=== PATIENT | male | born 1950 | race Caucasian/White ===

== ENCOUNTER 2019-09-13 15:49 | Outpatient (CLI) | payer MEDICARE, SELFPAY ==
[2019-09-13 16:38] LABS: Blood Urea Nitrogen 18 mg/dL (9-20); Calcium 9.2 mg/dL (8.4-10.2); Carbon Dioxide 26 mmol/L (22-30); Chloride 101 mmol/L (98-107); Estimated Glomerular Filt Rate > 60; Glucose 113 mg/dL (75-110); Sodium 139 mmol/L (137-145)
== END 2019-09-13 15:50 | disposition home or self-care (01) ==
LOC: ANHSURGERY 15:54
PROVIDERS: Anesthesiology; PCP Family Medicine; Visit Provider Surgery
DX: K43.2 Incisional hernia without obstruction or gangrene (principal); I10 Essential (primary) hypertension
CPT/HCPCS: 36415; 80048; 86850; 86900; 86901

== ENCOUNTER 2019-09-18 01:39 | Day surgery (SDC) | payer MEDICARE, SELFPAY ==
[2019-09-12 13:40] VITALS: BMI 30.9
--- NOTE | 2019-09-17 18:12 | WPDANESEPP ---
Anes - Eval Pre Procedure Procedure: Operation Date: 09/18/19 07:30 Proposed Procedures p Laparoscopic Incisional Hernia Repair With Mesh, Kit Assisted - Petey Mensah DO Date/Time: 09/17/19 18:12 Pre Op Diagnosis: Incisional Hernia Patient Data Age: 68 Gender: M Height: 1.78 m Weight: 97.65 kg Allergies Allergy/AdvReac Type Severity Reaction Status Date / Time Sulfa (Sulfonamide Allergy Unknown Rash Verified 09/16/19 14:41 Antibiotics) Home Medications Medication Instructions Recorded Confirmed Type lorazepam 0.5 mg tablet 0.5 mg PO BID PRN #60 tablet 08/01/19 09/16/19 Rx aspirin 81 mg tablet,delayed 81 mg PO DAILY 08/12/19 09/16/19 History release atorvastatin 40 mg tablet 40 mg PO .QHS #90 tablet 08/12/19 09/16/19 Rx cholecalciferol (vitamin D3) 25 1,000 unit PO Q5D cap 08/12/19 09/16/19 History mcg (1,000 unit) capsule metoprolol succinate 50 mg 50 mg PO DAILY #90 tablet 08/19/19 09/16/19 Rx tablet,extended release 24 hr sertraline 50 mg tablet 50 mg PO DAILY #90 tablet 08/19/19 09/16/19 Rx antiarthritic combination no.2 900 900 mg PO DAILY 08/23/19 09/16/19 History mg tablet lisinopril-hydrochlorothiazide 0.5 tablet PO PRN PRN 09/12/19 09/16/19 History multivitamin,xg-vtoh-ostuncfj 1 tablet PO DAILY 09/12/19 09/16/19 History [Complete Multivitamin] Patient hx anesthesia problems: none Family hx anesthesia problems: none PMFSH Past Medical History Medical History (Updated 09/17/19 @ 08:51 by Ruben George MD) Anxiety CAD (coronary artery disease) Dyslipidemia Essential (primary) hypertension History of heart disease History of panic attacks History of prostate cancer Kidney stone Osteoarthritis Prediabetes Vitamin D deficiency Surgical History Surgical History (Updated 09/16/19 @ 15:51 by Ruben George MD) H/O hernia repair H/O knee surgery H/O prostatectomy 03/2019 Hx laparoscopic cholecystectomy Hx of heart artery stent Social History Social History (Reviewed 09/16/19 @ 14:41 by Padmini Knapp Smoking status: Former smoker Second hand tobacco smoke exposure: No Smoking end date: 08/07/85 Alcohol intake: current Exam Day of Procedure 09/17/19 18:12
[2019-09-18] VITALS (10 sets, daily range): BP systolic 107–138; BP diastolic 53–82; PULSE 63–87; RESP 14–20; TEMP 36.9–37.3; O2SAT 91–97
[2019-09-18] MEDS: LACTATED RINGERS 1,000 ML 30 ML IV CONT ×2 (06:45→10:51)
--- NOTE | 2019-09-18 06:57 | P.PNAN_ITS ---
Anes - Eval Final PreProcedure Day of Procedure 09/18/19 06:57 Patient weight: obese Heart: regular rate and rhythm Lungs: decreased breath sounds Airway: Mallampati scale class 1 Neurological: alert and oriented Last oral intake: >/= 8 hours ASA classification: III Emergent: no Anesthetic plan: proceed Anesthesia type and monitoring: general ETT and standard monitoring Informed Consent: The patient's anesthetic plan and its attendant risks and b enefits were discussed with the patient/family/POA. Questions were solicited and answers provided to the satisfaction of the patient/family/POA.
[2019-09-18] MEDS: IBUPROFEN IV 800 MG/200 ML 800 MG/200 ML BAG 400 MG IVPB (07:00)
--- NOTE | 2019-09-18 07:14 | WPDHPUPDATE1 ---
History and Physical Update Update Date/Time: 09/18/19 07:14 History and Physical has been reviewed, including an updated exam of the patient. There are NO changes in the patient's condition. Risks, benefits, and alternatives have been discussed and questions answered. Patient agrees to proceed with procedure.
[2019-09-18] MEDS: ceFAZolin 2 GM/D5W 50 ML 2 GM/50 ML BAG IVPB (07:30)
--- NOTE | 2019-09-18 09:32 | SUR.OPER ---
SYMBOTEX INCISIONAL HERNIA MESH LOT PTF [id number], EXP 2024-01-05
--- NOTE | 2019-09-18 09:57 | PM.PROC ---
Procedure Note - Detailed Date of procedure: 09/18/19 Pre-op diagnosis: Incisional Hernia Post-op diagnosis: same Procedure performed: Laparoscopic incisional hernia repair with Symbotex mesh, da Marco A assisted Description of procedure: Procedure as well as risks, benefits, and alternatives were discussed with the patient. Written consent was obtained and placed in chart prior to procedure. Patient was brought back to surgical suite. He was placed supine on operating table. Time-out was done to confirm patient and procedure. He was then intubated by the anesthesia department. A bump was placed under his left hip, and the bed was flexed slightly to extend the space between his costal margin and iliac crest. His abdomen was prepped and draped in sterile fashion using chlorhexidine prep. A 5 millimeter incision was made in the left upper quadrant, and a 5 millimeter Optiview trocar was advanced through the abdominal layers under direct visualization. Once inside the abdominal cavity, carbon dioxide insufflation was used to create a pneumoperitoneum. The abdomen was inspected. An 8 millimeter incision was made in the left lower quadrant, and an 8 millimeter robotic trocar was placed under direct visualization. Another 8 millimeter incision was made in the left lateral abdomen, and an 8 millimeter robotic trocar was placed under direct visualization. Exparel was infiltrated along the lateral abdominal good to perform a transversus abdominis plane block bilaterally. The 5 millimeter port was removed, the incision was extended to 12 millimeters, and a 12 millimeter air seal port was placed under direct visualization. A Gui-Torres cone was also used to place an 0-Vicryl simple interrupted suture at this trocar site. The robotic arms were brought up to the patient's bedside and secured to the ports. The camera and instruments were inserted, and I then moved over to the robotic console and took control of the camera and instruments. After careful thorough inspection of the abdominal cavity, I began my dissection at the hernia. There was some omentum adherent to the hernia and this was carefully taken down using hook electrocautery. I then took down the hernia sac and the surrounding preperitoneal fat using hook electrocautery. The falciform ligament was also taken down for about 10 cm cephalad using hook electrocautery. This portion of the falciform ligament and the hernia sac were excised completely with electrocautery and removed through the 12 mm port. I then measured the hernia size. The hernia measured 5 cm x 4 cm. The fascia was closed using an 0-Stratafix running suture in a vertical fashion. A 15 cm x 20 cm Symbotex mesh was then placed within the abdominal cavity. This was oriented vertically with the mesh centered on the hernia defect. The mesh was then secured around the perimeter using and 2-0 V lock running absorbable suture. The repair was inspected, and one final inspection was made around the abdominal cavity. The robotic instruments were then removed, and the robotic arms were disengaged from the trocars. The ports were then removed under direct visualization, the camera was removed, and the pneumoperitoneum was released. The 0 Vicryl transfascial suture was tied down. The skin of the incisions was then approximated using 4-0 Monocryl subcuticular suture. Exofin glue was then applied on top. The patient was then awakened from anesthesia, extubated, and transferred to recovery. Implants: 15cm x 20cm Symbotex Mesh Anesthesia: GETA and local (Experienced) Surgeon: Petey Mensah DO Estimated blood loss (mL): 10 Drains: No Complications: No immediate complications Condition: stable Disposition: same day Findings: This is a 68-year-old man who presented with a painful bulge just above his umbilicus. He has noticed this over the past year. He underwent robotic prostatectomy back in 2018, and noticed the bulge at the scar from his
== END 2019-09-18 12:36 | disposition home or self-care (01) ==
PROVIDERS: PCP Family Medicine; Referring Provider Urology; Visit Provider Surgery
PROC: (CPT 49654; principal; 2019-09-18 07:30)
DX: K43.2 Incisional hernia without obstruction or gangrene (principal); I10 Essential (primary) hypertension; I25.10 Atherosclerotic heart disease of native coronary artery without angina pectoris; E78.5 Hyperlipidemia, unspecified; R73.03 Prediabetes; E55.9 Vitamin D deficiency, unspecified; M19.90 Unspecified osteoarthritis, unspecified site; Z79.82 Long term (current) use of aspirin; Z95.5 Presence of coronary angioplasty implant and graft; Z87.891 Personal history of nicotine dependence; Z85.46 Personal history of malignant neoplasm of prostate
CPT/HCPCS: 49654; S2900; A9270; C1781; C9290; J0461; J0690; J1100; J1170; J1741; J2250; J2405; J2704; J2710; J3010; J7030; J7120

== ENCOUNTER 2021-05-24 23:52 | Emergency (ER) | payer MEDICARE, SELFPAY ==
--- NOTE | ~2021-05-24 | XR_ITS ---
EXAMINATION: XR chest 1V DATE: 05/25/2021 00:45 INDICATION: Weakness. TECHNIQUE: A single frontal view of the chest was obtained. COMPARISON: Chest 2 views 03/22/2019, CT abdomen and pelvis 03/22/2019 FINDINGS: There are mild airspace opacities in the lower lung zones. No pleural effusion or pneumotho rax. The heart size is normal. There are prominent paracardial fat pads. Surgical clips in the right upper quadrant are likely from cholecystectomy. There is an old healed fracture of left clavicle. IMPRESSION: 1. Mild airspace opacities in the lower lung zones, likely atelectasis. Reviewed, dictated and finalized at location A.
--- NOTE | ~2021-05-24 | CT_ITS ---
EXAMINATION: CT brain wo con DATE: 05/25/2021 00:38 INDICATION: Dizziness. Frontal headache. TECHNIQUE: Computed tomography (CT) of the head was performed without intravenous contrast. The mA wa s adjusted according to patient size. Iterative reconstruction technique was employed. The dose-lengt h product was 605.33 mGy-cm. COMPARISON: Head CT 05/11/2019 FINDINGS: There is no intracranial hemorrhage, acute infarction, or abnormal intracranial mass lesion . The ventricles are normal in size. There is mild mucosal thickening in the paranasal sinuses. The m astoid air cells are normal. The orbits are normal. IMPRESSION: 1. Normal brain. Reviewed, dictated and finalized at location A. IMPRESSION: 1. Normal brain.
[2021-05-24 23:53] VITALS: BP 148/91; PULSE 97; RESP 20; TEMP 36.6; O2SAT 96
--- NOTE | 2021-05-25 00:05 | ED.WEAKNESS ---
HPI - Weakness General Chief complaint: Weakness Stated complaint: WEAK DIZZY Time Seen by Provider: 05/24/21 23:55 Source: RN notes reviewed History of Present Illness HPI Narrative: Patient presents emergency department from home for dizziness. Patient states he was sitting in his chair watching TV when he suddenly became dizzy states he felt like his head was pounding and felt like his heart was racing. He states that at that time he called EMS and was transferred for further evaluation he states that this time all the symptoms are improved except he still has a mild headache he denies any fevers or chills shortness of breath chest pain abdominal pain nausea vomiting or any other symptoms Related Data Home Medications Medication Instructions Recorded Confirmed aspirin 81 mg tablet,delayed 81 mg PO DAILY 08/12/19 01/28/21 release cholecalciferol (vitamin D3) 25 1,000 unit PO Q5D cap 08/12/19 01/28/21 mcg (1,000 unit) capsule antiarthritic combination no.2 900 900 mg PO DAILY 08/23/19 01/28/21 mg tablet Complete Multivitamin 1 tablet PO DAILY 09/12/19 01/28/21 lisinopril-hydrochlorothiazide 0.5 tablet PO PRN PRN 09/12/19 01/28/21 Allergies Allergy/AdvReac Type Severity Reaction Status Date / Time Sulfa (Sulfonamide Allergy Unknown Rash Verified 11/14/19 13:33 Antibiotics) Review of Systems Review of Systems: Gen.: Denies fevers or chills Eyes: Denies eye pain or visual change ENT: Denies congestion Respiratory: Denies shortness of breath or cough CV: Denies chest pain reports feelings of palpitations GI: Denies abdominal pain nausea, emesis or diarrhea Musculoskeletal: Denies back pain or muscle pain Neuro: Denies numbness, tingling, weakness or focal weakness reports headache and dizziness Skin: Denies rash Except as documented, all other systems reviewed and negative [facility] Past Medical History Medical History Anxiety Arthritis of carpometacarpal (CMC) joint of right thumb CAD (coronary artery disease) Dyslipidemia Essential (primary) hypertension History of heart disease History of panic attacks History of prostate cancer Kidney stone Osteoarthritis Prediabetes Vitamin D deficiency Surgical History Surgical History H/O hernia repair H/O knee surgery left knee Uni 2017 H/O prostatectomy 03/2019 History of incisional hernia repair with symbotex mesh, da Marco A assisted 09/18/19 Hx laparoscopic cholecystectomy Hx of heart artery stent Family History Family History Mother Family history of cardiovascular disease Carcinoma of colon Father Cerebrovascular accident Sibling Heart disease COPD (chronic obstructive pulmonary disease) Social History Social History Smoking status: Former smoker Second hand tobacco smoke exposure: No Smoking end date: 08/07/85 Alcohol intake: current Exam Narrative: APPEARANCE: No acute distress, nontoxic, resting in bed HEENT: Normocephalic, atraumatic, OMM, EYES: PERRL, EOMI NECK: Supple, nontender, full range of motion without pain, no meningismus RESPIRATORY: No respiratory distress, clear to auscultation bilaterally with no rhonchi wheezing or rales CARDIOVASCULAR: RRR s murmur ABDOMINAL: Soft, nontender, nondistended MUSCULOSKELETAL: Moves all extremities. No clubbing, cyanosis or edema. NEURO: A and O ?3, following commands, speech normal, cranial nerves II through XII grossly intact,muscle strength 5 out of 5 bilateral upper and lower extremities SKIN:: Warm, dry. Normal Color PSYCHIATRIC: Normal affect/mood Course Course Emergency Course: Patient is remained asymptomatic throughout his stay in the ED. He has remained on a quality assurance monitor with no signs of arrhythmia. Patient states this is the fourth time an episo
[2021-05-25 00:41] LABS: Basophils Absolute Auto 0.1 K/mm3 (0.0-0.1); Basophils Percent Auto 0.7 % (0.2-1.2); Eosinophils Absolute Auto 0.2 K/mm3 (0-0.3); Eosinophils Percent Auto 2.1 % (0-4.4); Hematocrit 40.9 % (42.0-52.0); Hemoglobin 14.5 g/dL (14.0-18.0); Immature Granulocyte Absolute 0.04 K/mm3 (0.00-0.031); Immature Granulocyte Percent A 0.4 % (0-0.5); Lymphocytes Absolute Auto 2.26 K/mm3 (0.9-3.2); Lymphocytes Percent Auto 22.9 % (18.3-44.2); Mean Corpuscular HGB Conc 35.5 g/dl (32-36); Mean Corpuscular Hemoglobin 31.5 pg (26-34); Mean Corpuscular Volume 88.7 fl (80-100); Mean Platelet Volume 8.6 fl (7.4-10.4); Monocytes Absolute Auto 0.9 K/mm3 (0.1-0.6); Monocytes Percent Auto 8.7 % (2.6-8.5); Neutrophils Absolute Auto 6.4 K/mm3 (1.3-6.7); Neutrophils Percent Auto 65.2 % (45.5-73.1); Platelet Count Result 245 k/mm3 (150-375); Red Blood Count 4.61 M/mm3 (4.6-6.20); Red Cell Distribution Width 13.6 % (11.5-14.5); White Blood Count 9.9 K/mm3 (4.5-10.0)
[2021-05-25 00:49] LABS: Alanine Aminotransferase 34 U/L (4-50); Alkaline Phosphatase 63 U/L (38-126); Anion Gap 9 mmol/L (8-16); Aspartate Amino Transferase 32 U/L (17-59); Bilirubin,Total 0.5 mg/dL (0.2-1.3); Blood Urea Nitrogen 27 mg/dL (9-20); Calcium 9.4 mg/dL (8.4-10.2); Carbon Dioxide 27 mmol/L (22-30); Chloride 100 mmol/L (98-107); Estimated CRCL calculation 72 ml/min; Estimated Glomerular Filt Rate > 60; Glucose 136 mg/dL (65-110); Potassium 3.6 mmol/L (3.4-5.0); Sodium 136 mmol/L (137-145)
--- NOTE | 2021-05-25 00:54 | ECG_ITS ---
Measurements Intervals [place] Rate: 88 P: 46 AR: 201 QRS: -4 QRSD: 109 T: 47 QT: 378 QTc: 459 Interpretive Statements SINUS RHYTHM DELAYED PRECORDIAL R/S TRANSITION MINIMAL Q WAVES- HIGH LATERAL LEADS BASELINE ARTIFACT- II, III, AVR, AVF, V1, V3-V6 BORDERLINE ECG Electronically Signed On 05-25-2021 7:55:56 CDT by Ramon Fernandez D.O.
[2021-05-25 01:01] LABS: Troponin I < 0.012 ng/mL (0.000-0.034)
[2021-05-25 01:07] LABS: Add Urine Microscopic? NO; Appearance Urine Clear (Clear); Bilirubin Urine Negative (Negative); Blood Urine Negative (Negative); Color Urine Straw (Yellow); Glucose Urine UA Negative (Negative); Ketones Urine Negative (Negative); Leukocyte Esterase Ur Negative LEU/UL (Negative); Nitrate Urine Negative (Negative); Protein Urine Negative (Negative); Specific Grav Ur 1.012 (1.001-1.035); Urobilinogen Urine Negative mg/dL (<2.0)
[2021-05-25 01:28] VITALS: BP 135/77; PULSE 90; RESP 17; O2SAT 97
[2021-05-25 01:34] LABS: Prothrombin Time 13.1 Seconds (11.1-14.7)
[2021-05-25 01:35] LABS: Partial Thromboplastin Time 25.6 SECONDS (22.3-36.8)
[2021-05-25 02:39] VITALS: BP 134/95; PULSE 99; RESP 19; O2SAT 95
[2021-05-25 03:50] LABS: Troponin I < 0.012 ng/mL (0.000-0.034)
[2021-05-25 04:37] VITALS: BP 135/74; PULSE 87; RESP 20; O2SAT 97
== END 2021-05-25 04:49 | disposition home or self-care (01) ==
PROVIDERS: Emergency Provider Emergency Medicine; PCP Family Medicine
DX: R42 Dizziness and giddiness (principal); I25.10 Atherosclerotic heart disease of native coronary artery without angina pectoris; E78.5 Hyperlipidemia, unspecified; I10 Essential (primary) hypertension; M18.9 Osteoarthritis of first carpometacarpal joint, unspecified; R73.03 Prediabetes; E55.9 Vitamin D deficiency, unspecified; F41.9 Anxiety disorder, unspecified; Z85.46 Personal history of malignant neoplasm of prostate; Z79.82 Long term (current) use of aspirin; Z87.442 Personal history of urinary calculi; Z90.79 Acquired absence of other genital organ(s); Z95.5 Presence of coronary angioplasty implant and graft; Z87.891 Personal history of nicotine dependence; R94.31 Abnormal electrocardiogram [ECG] [EKG]; R91.8 Other nonspecific abnormal finding of lung field
CPT/HCPCS: 36415; 70450; 71045; 80053; 81003; 84484; 85025; 85610; 85730; 93005; 96365; 99284; J0131

== ENCOUNTER 2021-05-26 12:54 | Emergency (ER) | payer MEDICARE, SELFPAY ==
[2021-05-26] VITALS (46 sets, daily range): BP systolic 117–162; BP diastolic 78–94; PULSE 70–108; RESP 11–24; TEMP 36.6; O2SAT 94–99
--- NOTE | ~2021-05-26 | XR_ITS ---
EXAMINATION: XR chest 2V 05/26/2021 12:56 INDICATION: Shortness of breath and tachycardia. History of coronary artery stent PROCEDURE: PA and lateral views of the chest COMPARISON: Comparison to multiple prior studies sequentially, with oldest reviewed study dated 08/2018. FINDINGS: The lungs are clear. The cardiomediastinal silhouette is within normal limits. There are no pleural effusions. There is no pneumothorax suspected. IMPRESSION: 1: NO ACUTE CARDIOPULMONARY DISEASE. Reviewed, dictated and finalized at location B.
--- NOTE | 2021-05-26 12:39 | ECG_ITS ---
Measurements Intervals [place] Rate: 94 P: 46 HI: 193 QRS: -18 QRSD: 101 T: 43 QT: 344 QTc: 431 Interpretive Statements SINUS RHYTHM BASELINE ARTIFACT- I, II, AVR NORMAL ECG Electronically Signed On 05-26-2021 13:32:05 CDT by Ramon Fernandez D.O.
--- NOTE | 2021-05-26 12:53 | PC.NURSE ---
Pt off floor to radiology
[2021-05-26 13:04] LABS: Anion Gap 11 mmol/L (8-16); Blood Urea Nitrogen 22 mg/dL (9-20); Calcium 9.9 mg/dL (8.4-10.2); Carbon Dioxide 25 mmol/L (22-30); Chloride 103 mmol/L (98-107); Estimated CRCL calculation 79 ml/min; Estimated Glomerular Filt Rate > 60; Glucose 170 mg/dL (65-110); Potassium 3.7 mmol/L (3.4-5.0); Sodium 139 mmol/L (137-145)
[2021-05-26 13:16] LABS: Basophils Absolute Auto 0.1 K/mm3 (0.0-0.1); Basophils Percent Auto 0.5 % (0.2-1.2); Eosinophils Absolute Auto 0.1 K/mm3 (0-0.3); Eosinophils Percent Auto 1.4 % (0-4.4); Hematocrit 43.3 % (42.0-52.0); Hemoglobin 14.8 g/dL (14.0-18.0); Immature Granulocyte Absolute 0.14 K/mm3 (0.00-0.031); Immature Granulocyte Percent A 1.4 % (0-0.5); Lymphocytes Absolute Auto 1.44 K/mm3 (0.9-3.2); Lymphocytes Percent Auto 14.9 % (18.3-44.2); Mean Corpuscular HGB Conc 34.2 g/dl (32-36); Mean Corpuscular Hemoglobin 30.3 pg (26-34); Mean Corpuscular Volume 88.7 fl (80-100); Monocytes Absolute Auto 0.6 K/mm3 (0.1-0.6); Monocytes Percent Auto 6.6 % (2.6-8.5); Neutrophils Absolute Auto 7.3 K/mm3 (1.3-6.7); Neutrophils Percent Auto 75.2 % (45.5-73.1); Platelet Count Result 273 k/mm3 (150-375); Red Blood Count 4.88 M/mm3 (4.6-6.20); Red Cell Distribution Width 13.4 % (11.5-14.5); White Blood Count 9.7 K/mm3 (4.5-10.0)
--- NOTE | 2021-05-26 13:35 | ED.SOB ---
HPI - SOB/Dyspnea General Chief Complaint: Shortness of Breath/Dyspnea Stated Complaint: HEART RACING Source: patient Mode of arrival: EMS Limitations: no limitations History of Present Illness HPI Narrative: This is a 70 year old male with history of CAD s/p stent, hypertension, anxiety who presents for evaluation of heart racing. Patient states today he developed heart racing while talking to his . He also reports he felt montiel to his forehead . He reports his heart rate was 110 at that time, and later his watch reported his HR was 150. Patient states his heart rate was going up and down. He denies chest pain but reports he has nagging feeling in his chest. He also reports some mild shortness of breath. He states he was evaluted in ER on Monday night for similar symptoms. He ran out of metoprolol on Monday so he has not taken it since Monday. He denies nausea, vomiting, fever. Related Data Home Medications Medication Instructions Recorded Confirmed aspirin 81 mg tablet,delayed 81 mg PO DAILY 08/12/19 01/28/21 release cholecalciferol (vitamin D3) 25 1,000 unit PO Q5D cap 08/12/19 01/28/21 mcg (1,000 unit) capsule antiarthritic combination no.2 900 900 mg PO DAILY 08/23/19 01/28/21 mg tablet Complete Multivitamin 1 tablet PO DAILY 09/12/19 01/28/21 lisinopril-hydrochlorothiazide 0.5 tablet PO PRN PRN 09/12/19 01/28/21 Allergies Allergy/AdvReac Type Severity Reaction Status Date / Time Sulfa (Sulfonamide Allergy Unknown Rash Verified 11/14/19 13:33 Antibiotics) Review of Systems Review of Systems: All systems reviewed & are unremarkable except as noted in HPI and below PMFSH Past Medical History Medical History Anxiety Arthritis of carpometacarpal (CMC) joint of right thumb CAD (coronary artery disease) Dyslipidemia Essential (primary) hypertension History of heart disease History of panic attacks History of prostate cancer Kidney stone Osteoarthritis Prediabetes Vitamin D deficiency Surgical History Surgical History H/O hernia repair H/O knee surgery left knee Uni 2017 H/O prostatectomy 03/2019 History of incisional hernia repair with symbotex mesh, da Marco A assisted 09/18/19 Hx laparoscopic cholecystectomy Hx of heart artery stent Family History Family History Mother Family history of cardiovascular disease Carcinoma of colon Father Cerebrovascular accident Sibling Heart disease COPD (chronic obstructive pulmonary disease) Social History Social History Smoking status: Former smoker Second hand tobacco smoke exposure: No Smoking end date: 08/07/85 Alcohol intake: current Exam Const: General: no acute distress and alert Orientation/consciousness: patient oriented x3 Eyes: EOM: EOMs intact bilaterally Resp: Effort & Inspection: normal respiratory effort and no retractions Auscultation: clear to auscultation bilaterally Cardio: Rate: regular rate Rhythm: regular rhythm Heart sounds: no murmurs GI: GI Palp: Yes Soft to palpation, No Tenderness to palpation present (GI) and No Guarding due to palpation present (GI) Auscultation: normal bowel sounds Skin: Rashes: no rashes Neuro: General: patient oriented x3, moves all extremities and CN's II-XI intact bilaterally Extrem: General: normal to inspection Psych: Mental Status: mental status grossly normal Affect: normal affect Course Reevaluation(s) Reevaluation #1: PAtient has HR 70 with BP 136/81. He has no chest pain, sob. He states he feels pretty good. He has appointment with cardiology on Monday. I will prescribed metoprolol until he is able to get his filled. Date: 05/26/21 Time: 17:10 Consultations Consultation #1: I discussed case with Dr. Juarez. Oscar
[2021-05-26] MEDS: METOPROLOL TARTRATE INJ 5 MG/5 ML VIAL IV PUSH (13:39)
[2021-05-26] MEDS: METOPROLOL SUCCINATE EXT REL 50 MG TABCR PO (13:49)
--- NOTE | 2021-05-26 13:54 | PC.NURSE ---
Called lab for add on of Mag and troponin
[2021-05-26 14:15] LABS: INR 0.9; Prothrombin Time 12.2 Seconds (11.1-14.7)
[2021-05-26 14:18] LABS: D Dimer 0.38 ug/mL (<0.48)
[2021-05-26 16:33] LABS: Troponin I < 0.012 ng/mL (0.000-0.034)
[2021-05-26 19:31] LABS: Magnesium 1.8 mg/dL (1.6-2.3)
[2021-05-26 19:43] LABS: Troponin I < 0.012 ng/mL (0.000-0.034)
== END 2021-05-26 17:55 | disposition home or self-care (01) ==
PROVIDERS: Emergency Provider General Practice; PCP Family Medicine
DX: I10 Essential (primary) hypertension (principal); R00.2 Palpitations; F41.9 Anxiety disorder, unspecified; M19.90 Unspecified osteoarthritis, unspecified site; I25.10 Atherosclerotic heart disease of native coronary artery without angina pectoris; E78.5 Hyperlipidemia, unspecified; Z87.442 Personal history of urinary calculi
CPT/HCPCS: 36415; 71046; 80048; 83735; 84484; 85025; 85380; 85610; 85730; 93005; 96374; 99284; A9270

== ENCOUNTER 2021-06-17 09:40 | Emergency (ER) | payer MEDICARE, SELFPAY ==
[2021-06-17] VITALS (11 sets, daily range): BP systolic 132–144; BP diastolic 74–83; PULSE 72–99; RESP 16–25; TEMP 37; O2SAT 93–97
--- NOTE | ~2021-06-17 | US_ITS ---
EXAMINATION: US venous doppler [facility] DATE: 06/17/2021 10:21 INDICATION: Left lower limb swelling TECHNIQUE: Packer scale images without and with compression and Doppler images of the left lower extrem ity veins were obtained. COMPARISON: 08/04/2018 FINDINGS: The left common femoral vein, profunda femoral vein, femoral vein, popliteal vein, peroneal trunk, posterior tibial veins, and greater saphenous vein are patent. IMPRESSION: 1. Patent left lower extremity veins. No evidence of deep venous thrombosis. Reviewed, dictated and finalized at location B. 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
--- NOTE | 2021-06-17 11:20 | ED.GENADULT ---
HPI - General Adult General Chief complaint: Extremity Injury, Lower Stated complaint: ?DVT Time Seen by Provider: 06/17/21 09:50 Source: patient Mode of arrival: ambulatory Limitations: no limitations History of Present Illness HPI narrative: Patient is a 70-year-old male with chief complaint of swelling and tenderness to the posterior aspect of his left calf. Patient reports that he got his doctor's office and was told to present to the emergency department for rule out DVT. Patient reports that he has a family history of DVTs so he became very concerned. Patient reports that he takes a 81 mg aspirin daily but denies being on any other blood thinners. Patient reports that he is wearing a heart monitor as he was having arrhythmias and variation of his heart rate. He is under the management of Dr. Quiles and has been started on metoprolol. He reports today he does not have any chest pain, feeling of palpitations, shortness of breath, syncope, fever, chills, cough or any other symptoms. Related Data Home Medications Medication Instructions Recorded Confirmed aspirin 81 mg tablet,delayed 81 mg PO DAILY 08/12/19 06/03/21 release Complete Multivitamin 1 tablet PO DAILY 09/12/19 06/03/21 atorvastatin 40 mg tablet 40 mg PO DAILY tablet 05/31/21 06/03/21 cholecalciferol (vitamin D3) 25 5,000 unit PO DAILY cap 05/31/21 06/03/21 mcg (1,000 unit) capsule lisinopril 20 0.5 tablet PO DAILY tablet 05/31/21 06/03/21 mg-hydrochlorothiazide 12.5 mg tablet oxybutynin chloride 10 mg 10 mg PO DAILY 05/31/21 06/03/21 tablet,extended release 24 hr Allergies Allergy/AdvReac Type Severity Reaction Status Date / Time Sulfa (Sulfonamide Allergy Unknown Rash Verified 05/31/21 15:57 Antibiotics) Review of Systems Review of Systems: CONSTITUTIONAL: Denies fever, chills, or sweats. EYES: Denies visual changes, redness, or discharge. ENT: Denies rhinorrhea, congestion, sore throat, or otalgia. CARDIOVASCULAR: Denies chest pain, palpitations, or edema. RESPIRATORY: Denies cough or dyspnea. GASTROINTESTINAL: Denies abdominal pain, nausea, vomiting, or diarrhea. GENITOURINARY: Denies dysuria or hematuria. SKIN: Denies rash or itching. MUSCULOSKELETAL: Reports left leg swelling denies back pain, joint pain, or myalgia. NEUROLOGIC: Denies headache, numbness, dizziness, or weakness. PSYCHIATRIC: Denies anxiety or depression. [facility] Past Medical History Medical History Anxiety Arthritis of carpometacarpal (CMC) joint of right thumb CAD (coronary artery disease) Dyslipidemia Essential (primary) hypertension GERD (gastroesophageal reflux disease) History of heart disease History of panic attacks History of prostate cancer Kidney stone Osteoarthritis Prediabetes Vitamin D deficiency Surgical History Surgical History H/O hernia repair (~2001) 2018 H/O knee surgery left knee Uni 2017 H/O prostatectomy 03/2019 History of incisional hernia repair with symbotex mesh, da Marco A assisted 09/18/19 Hx laparoscopic cholecystectomy (~2002) Hx of heart artery stent (~2013) Family History Family History Mother Family history of cardiovascular disease Carcinoma of colon Father Cerebrovascular accident Sibling Heart disease COPD (chronic obstructive pulmonary disease) Social History Social History Smoking status: Former smoker Second hand tobacco smoke exposure: No Smoking end date: 08/07/85 Alcohol intake: former Substance use: never Substance use type: does not use Additional living arrangements comments: Gender identity (if verbalized by the patient): Male Sexual Orientation (if Verbalized by the Patient): Straight or Heterosexual Exam Narrative: GENERAL: Well-appeari
== END 2021-06-17 11:38 | disposition home or self-care (01) ==
PROVIDERS: Emergency Provider Emergency Medicine; PCP Family Medicine
DX: L73.9 Follicular disorder, unspecified (principal); I10 Essential (primary) hypertension; I25.10 Atherosclerotic heart disease of native coronary artery without angina pectoris; E78.5 Hyperlipidemia, unspecified; Z87.891 Personal history of nicotine dependence; Z79.82 Long term (current) use of aspirin; Z85.46 Personal history of malignant neoplasm of prostate
CPT/HCPCS: 93971; 99284

== ENCOUNTER → 2021-07-03 08:58 | Outpatient (CLI) | payer MEDICARE, SELFPAY ==
--- NOTE | ~2021-07-03 | US_ITS ---
EXAMINATION: US soft tissue LE LT INDICATION: Localized swelling, mass, and lump of the left lower limb TECHNIQUE: Limited high-resolution ultrasound of the left lower limb is performed. COMPARISON: None available FINDINGS: There are multiple superficial varicose veins of the left lower limb in the area of clinica l concern. Some demonstrate thrombosis. No suspicious cystic or solid mass is identified. IMPRESSION: 1. Varicose veins, some with thrombosis, correlating with the area of clinical interest. Reviewed, dictated and finalized at location A. STYLIST
== END ==
PROVIDERS: PCP Family Medicine; Visit Provider Family Medicine
DX: R22.42 Localized swelling, mass and lump, left lower limb (principal); I83.92 Asymptomatic varicose veins of left lower extremity
CPT/HCPCS: 76882

== ENCOUNTER 2021-12-23 09:22 | Outpatient (CLI) | payer MEDICARE, SELFPAY ==
[2021-12-23 10:14] LABS: Alanine Aminotransferase 27 U/L (6-50); Albumin Level 4.8 g/dL (3.5-5.1); Alkaline Phosphatase 58 U/L (38-126); Anion Gap 10 mmol/L (8-16); Aspartate Amino Transferase 28 U/L (17-59); Bilirubin,Total 0.5 mg/dL (0.2-1.3); Blood Urea Nitrogen 20 mg/dL (9-20); Calcium 8.9 mg/dL (8.4-10.2); Carbon Dioxide 23 mmol/L (22-30); Chloride 105 mmol/L (98-107); Cholesterol 216 mg/dL (0-200); Estimated Glomerular Filt Rate > 60; Glucose 119 mg/dL (65-110); HDL Direct 41 mg/dL; Potassium 4.5 mmol/L (3.4-5.0); Sodium 138 mmol/L (137-145); Triglycerides 253 mg/dL (<150)
[2021-12-23 10:26] LABS: LDL Cholesterol Direct 101 mg/dL
[2021-12-23 10:56] LABS: Vitamin D 25 Hydroxy 57.7 ng/mL
== END 2021-12-23 09:23 | disposition home or self-care (01) ==
LOC: ANHLAB 09:24
PROVIDERS: PCP Family Medicine; Visit Provider Family Medicine
DX: R73.03 Prediabetes (principal); E78.5 Hyperlipidemia, unspecified; E55.9 Vitamin D deficiency, unspecified; I10 Essential (primary) hypertension
CPT/HCPCS: 36415; 80053; 80061; 82306; 83036

== ENCOUNTER 2022-01-11 00:09 | Day surgery (SDC) | payer MEDICARE, SELFPAY ==
[2021-12-29 12:37] VITALS: BMI 30.2
--- NOTE | 2021-12-29 12:47 | PC.NURSE ---
Report to the Outpatient Waiting Room, entrance under the green pavilion located off [facility], at time _0900_ on date _01/11/22_. OR Time: _1100_. - You and your visitor will be asked a series of questions to screen for COVID 19 for your protection. - Only one visitor is allowed at this time. - The patient visitor is requested to leave or wait in car when not with patient. - A mask is required within the hospital. Patients may have clear liquids (water, carbonated beverages, clear teas, apple juice) until 3 hours prior to surgery (0800 AM) with a maximum of 20 ounces. - No food from midnight until time of surgery Take the following medications with a SIP of water the morning of surgery: _METOPROLOL, SERTRALINE, LORAZEPAM IF NEEDED_ Medications to discontinue __ASPIRIN PER DR. SAUCEDO'S INSTRUCTIONS, VITAMIN D3 - 3 DAYS PRIOR TO SURGERY PER ANESTHESIA, Date to take last dose 01/07/22__ Please no deodorant, or body powder the day of surgery. No jewelry (including any body piercings) or valuables the day of surgery, leave them at home. Please take a shower or bath the night before, or the morning of, surgery with an antibacterial soap. Wear comfortable, loose fitting clothing. - Jewelry must be removed prior to entering the operating room. Rings and piercings that are not removed may be cut off. - The hospital will not accept responsibility for valuables. - Please leave all valuables, including medications, at home the day of surgery. If you are going home after surgery, a licensed mail truck driver must drive you home. - NO public transportation without another adult. - We recommend that an adult stay with you for 24 hours following discharge. - We also recommend that you do not drive, make important decision, drink alcoholic beverages, or take any drugs that were not prescribed by your health care provider for at least 24 hours after your discharge time. Follow any additional instructions given to you from your surgeon. If you or anyone in your household have experienced Covid symptoms in the past week, please notify your surgeon or the nurse liaison at the phone number below for possible testing. Telephone instructions given to PT and asked if any additional questions and then verbalized understanding. Patient advised to call surgeon office or pre surgery nurse liaison [phone] if any additional questions.
--- NOTE | 2022-01-10 13:35 | WPDANESEPPF ---
Anes - Initial Pre Proc Eval Procedure: Operation Date: 01/11/22 11:00 Proposed Procedures p Right Thumb Carpal Metacarpal Arthroplasty - Jace Alcaraz MD Date/Time: 01/10/22 13:35 Surgeon: Jace Alcaraz MD Pre Op Diagnosis: right thumb cmc arthritis Patient Data Age: 71 Gender: M Height: 1.78 m Weight: 95.45 kg Allergies Allergy/AdvReac Type Severity Reaction Status Date / Time Sulfa (Sulfonamide Allergy Unknown Rash Verified 01/04/22 07:54 Antibiotics) Home Medications Medication Instructions Recorded Confirmed Type aspirin 81 mg tablet,delayed 81 mg PO HS 08/12/19 01/11/22 History release (Aspir-) multivitamin,[id number] 1 tablet PO QAM 09/12/19 01/11/22 History (Complete Multivitamin tablet) cholecalciferol (vitamin D3) 25 5,000 unit PO QAM 05/31/21 01/11/22 History mcg (1,000 unit) capsule oxybutynin chloride 10 mg 15 mg PO HS 06/23/21 01/11/22 History tablet,extended release 24 hr lorazepam 0.5 mg tablet 0.5 mg PO BID PRN anxiety #60 tabs 09/10/21 01/11/22 Rx acetaminophen 650 mg 650 mg PO Q12H PRN Pain 12/22/21 01/11/22 History tablet,extended release (Tylenol Arthritis Pain) atorvastatin 40 mg tablet 60 mg PO QHS #135 tabs 12/23/21 01/11/22 Rx metoprolol succinate 50 mg 50 mg PO QAM 12/29/21 01/11/22 History tablet,extended release 24 hr omeprazole 40 mg capsule,delayed 40 mg PO QAM 12/29/21 01/11/22 History release sertraline 50 mg tablet (Zoloft) 50 mg PO QAM 12/29/21 01/11/22 History lisinopril 20 0.5 tablet PO DAILY PRN 01/11/22 01/11/22 History mg-hydrochlorothiazide 12.5 mg HYPERTENSION tablet Patient hx anesthesia problems: none Family hx anesthesia problems: none Results Review: All pre-operative results and documents have been reviewed as part of the pre-operative evaluation. [facility] Past Medical History Medical History (Updated 01/10/22 @ 13:38 by Devyn Hannon MD) Anxiety Arthritis of carpometacarpal (CMC) joint of right thumb Asthma CAD (coronary artery disease) Dyslipidemia Essential (primary) hypertension GERD (gastroesophageal reflux disease) History of heart disease History of panic attacks History of prostate cancer Hx of myocardial infarction Hyperlipidemia Kidney stone Obesity Osteoarthritis Overactive bladder Prediabetes Vitamin D deficiency Surgical History Surgical History H/O knee surgery (~10/2017) left knee partial replacement 2017 History of incisional hernia repair (~09/2019) with symbotex mesh, da Marco A assisted 09/18/19 History of prostatectomy (~03/2019) History of right inguinal hernia repair (~2001) 2001, 2018 Hx laparoscopic cholecystectomy (~2001) Hx of heart artery stent (~04/2011) Family History Family History Mother Family history of cardiovascular disease Carcinoma of colon Father Cerebrovascular accident Sibling Heart disease COPD (chronic obstructive pulmonary disease) Social History Social History Smoking packs per day: 0.5 Smoking cigarettes per day: 10.0 Years smoked: 10 Smoking pack-years: 5.00 Tobacco type: cigarettes Second hand tobacco smoke exposure: No Smoking end date: 08/07/85 Alcohol intake: former Substance use: never Substance use type: does not use Living arrangements: with family Additional living arrangements comments: Gender identity (if verbalized by the patient): Male Sexual Orientation (if Verbalized by the Patient): Straight or Heterosexual Spiritual care concerns: No Anes - Eval Final PreProcedure Day of Procedure 01/10/22 13:35 Patient weight: obese Heart: regular rate and rhythm Lungs: decreased breath sounds Airway: Mallampati scale class 1 Neurological: alert and oriented Last oral intake: >/= 8 hours ASA classification: III E
[2022-01-11] VITALS (10 sets, daily range): BP systolic 102–123; BP diastolic 67–78; PULSE 62–75; RESP 15–20; TEMP 36.2–37.1; O2SAT 92–100
--- NOTE | ~2022-01-11 | XR_ITS ---
XR finger 1st RT min 2V DATE: 01/11/2022 13:04 INDICATION: Right thumb carpometacarpal arthroplasty TECHNIQUE: 3 views COMPARISON: 01/04/2022 right hand FINDINGS: There is surgical resection of the trapezium bone since 01/04/2022. There is mild likely pos toperative subcutaneous emphysema. IMPRESSION: Surgical resection of trapezium bone. Reviewed, dictated and finalized at location A.
[2022-01-11] MEDS: ACETAMINOPHEN 500 MG TABLET 1000 MG PO (09:13)
[2022-01-11] MEDS: LACTATED RINGERS 1,000 ML 30 ML IV CONT (09:15)
[2022-01-11] MEDS: KETOROLAC 15 MG/ML VIAL (*BKC) IV PUSH (09:20)
--- NOTE | 2022-01-11 09:33 | WPDANESPNB ---
Anes - Peripheral Nerve Block Date/Time: 01/11/22 09:33 I have discussed with the patient/family/POA the placement of a peripheral nerve block for post-operative pain management, including associated risks, benefits, complications, and side effects. Alternative methods of post-operative analgesia were detailed. Questions were solicited and answers provided to the satisfaction of the patient/family/POA. Time-Out: A pre-procedural Time-Out was completed immediately before starting the procedure and confirmed: Patient Identification, Site, Procedure, Patient Position and the Availability of Requisite Equipment. Clinical Indications: Acute post-operative pain management requested by the operative surgeon. Nerve Block Insertion Note Anes-nerve block: supraclavicular right Patient position: supine Skin prep: chlorhexidine Needle: 22 gauge, stimulating, insulated echogenic needle. Needle length: 80 mm Technique: ultrasound (in plane) Injectate: bupivacaine 0.5% with epi 5 mcg/ml (20cc) Observations: tolerated well Complications: none Procedure start time:: 1040 Procedure end time:: 1044
--- NOTE | 2022-01-11 10:29 | WPDHPUPDATE1 ---
History and Physical Update Update Date/Time: 01/11/22 10:29 History and Physical has been reviewed, including an updated exam of the patient. There are NO changes in the patient's condition. Risks, benefits, and alternatives have been discussed and questions answered. Patient agrees to proceed with procedure.
[2022-01-11] MEDS: ceFAZolin 2 GM/D5W 50 ML 2 GM/50 ML BAG IVPB (10:48)
--- NOTE | 2022-01-11 12:57 | P.OP_ITS ---
Procedure Note - Detailed Date of Procedure 01/11/22 Pre-op Diagnosis right thumb cmc arthritis Post-op Diagnosis Same Procedure Performed Right thumb CMC suspension arthroplasty Surgeon Jace Alcaraz MD Computer Technician Cirilo Odell Description of Procedure The patient was identified proper site identified. In the preop holding area the anesthesia team performed a rightupper extremity block. Hewas then taken to the operating room transferred to the OR table placing himsupine taking care to pad the torso and extremities. After general anesthetic induction and intubation, a nonsterile tourniquet was placed high on the right arm. His right upper extremity was prepped and draped in usual sterile fashion. Extremity was exsanguinated and tourniquet was inflated to 250mmHg remaining up for approximately 73 minutes. A longitudinal incision was made over the FCR tendon curving radially at the base of the thenar musculature. Subcutaneous tissue bluntly dissected protecting neurovascular structures. A slip of the APL which inserted into the thenar musculature was released and marked for later repair. The thenar musculature was elevated up off of the carpus and the trapezium identified. While protecting the FCR, a trapeziectomy was performed. The a ulnar-sided distally-based 8 cm slip of FCR was then developed hand used to create a sling weaving the tendon slip between the FCR tendon and the APL tendon securing it to itself with 3-0 Ethibond suture. The EPL tendon was advanced on itself and also secured with 3-0 Ethibond suture seating the sling in the trapeziectomy site. This allowed the thumb to sit very nicely in a position of function. The EPB tendon was then reefed also with 3-0 Ethibond taking up the slack in that structure. The wound was irrigated with sterile antibiotic solution. The wrist capsule and thenar musculature were tacked back down with 4-0 Monocryl. The slip of the EPL was reattached to the thenar musculature with 3-0 Ethibond. Skin edges were reapproximated with 3-0 Monocryl and 4-0 Prolene subcuticular stitch. Steri-Strips were applied. Sterile dressings applied and the tourniquet was released. Well-padded thumb spica splint was fashioned. The patient tolerated procedure well . He was awakened extubated and taken to recovery area in stable condition. There were no known intraoperative complications. Estimated blood loss was negligible. Perioperative antibiotics were administered. Estimated Blood Loss -1.0 Tourniquet Time 73 Pathology None sent Complications No immediate complications Condition Stable Disposition PACU
== END 2022-01-11 14:25 | disposition home or self-care (01) ==
PROVIDERS: PCP Family Medicine; Visit Provider Orthopaedic Surgery
PROC: (CPT 25447; principal; 2022-01-11 11:00)
DX: M18.11 Unilateral primary osteoarthritis of first carpometacarpal joint, right hand (principal); G89.18 Other acute postprocedural pain; I10 Essential (primary) hypertension; I25.10 Atherosclerotic heart disease of native coronary artery without angina pectoris; E78.5 Hyperlipidemia, unspecified; K21.9 Gastro-esophageal reflux disease without esophagitis; I25.2 Old myocardial infarction; E55.9 Vitamin D deficiency, unspecified; F41.9 Anxiety disorder, unspecified; Z85.46 Personal history of malignant neoplasm of prostate; Z95.5 Presence of coronary angioplasty implant and graft; Z87.891 Personal history of nicotine dependence; E66.9 Obesity, unspecified; Z68.29 Body mass index [BMI] 29.0-29.9, adult
CPT/HCPCS: 25447; 64415; 73140; A9270; J0690; J1100; J1885; J2250; J2405; J2704; J3010; J7120

== ENCOUNTER 2022-03-03 08:00 | Outpatient (RCR) | payer MEDICARE, SELFPAY ==
--- NOTE | 2022-01-31 08:24 | OTOPEVAL ---
OCCUPATIONAL THERAPY INITIAL EVALUATION REPORT 01/31/22 Thank you for referring Jorje Acuña to [facility].? The patient is scheduled to be seen for therapy? 1x/week for 4 weeks. Please review, sign, date and return this plan of care ESME. I agree with and certify that the following plan of care is medically necessary. Referring Physician Date Referring Provider: Jace Alcaraz MD *OT Outpatient Evaluation Start: 01/31/22 07:30 Outpatient Past Medical History Neurological History Hx Neurological Disorders No Significant History Cardiovascular History Hx Coronary Stent Yes: X 2 Hx Hypercholesterolemia Yes Hx Hypertension Yes Hx Myocardial Infarction Yes Hx Other Cardiac Disorders Yes: DR JAIN EVERY 6 MONTHS Respiratory History Hx Asthma Yes: SEASONAL Gastrointestinal History Hx Gastroesophageal Reflux Disease Yes Genitourinary History Hx Other Genitourinary Disorders Yes: OVERACTIVE BLADDER, STATES SLIGHT INCONTINENCE Musculoskeletal History Hx Other Musculoskeletal Disorders Yes: ARTHRITIS TO RT THUMB Hematological History Hx Hematological Disorders No Significant History Endocrine History Hx Diabetes Yes: STATES PRE-DIABETIC, DIET CONTROLLED HEENT History Hx Other HEENT Disorders Yes: GLASSES Integumentary History Hx Skin Disorders No Significant History Reproductive History Hx Other Reproductive Disorders Yes: VASECTOMY Psychosocial History Hx Recent Lifestyle Changes Yes: LIVES WITH SPOUSE WHO HAS ALZHEIMER'S Pain History History of Any Previous or Ongoing No Significant History Instance of Pain Anesthesia History Hx Other Anesthesia Reactions Yes: CONFUSSION Other History Hx Implanted Device Yes: LT KNEE Evaluation Information Problem Diagnosis R 1st CMC arthroplasty Onset 01/31/22 Cause OA Subjective Information Patient reports the thumb has Query Text:As Reported By Patient/ been sore and achy. He states Family he feels some muscle spasms when he tries to move his wrist. 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 States he favors his left hand. Prior Level of Function Activity Level (Last 3 Months) Occupation Retired Hand Dominance Left Activity of Daily Living Ability Independent Cooking Yes Cleaning Yes Laundry Yes Shopping
--- NOTE | 2022-03-03 08:47 | OTOPEVAL ---
OCCUPATIONAL THERAPY RE-EVALUATION AND DISCHARGE SUMMARY 03/03/22 Konstantin Recinos , is a 71 year-old, left handed male who is 7 weeks s/p right 1st CMC arthroplasty. He presents today for OT re-evaluation with return of functional ROM in the right wrist and thumb. He continues to have residual weakness for which a strengthening HEP has been issued. The patient reports some increases in pain this last week due to over doing it - recommended that he continue to wear his brace for heavy tasks as he gradually works on getting the wrist and hand stronger. He verbalizes excellent understanding of all materials. No further skilled OT indicated at this time. Thank you for referring Jorje Acuña to [facility].? Please review, sign, date and return this D/C Note ESME. I agree with and certify that the following plan of care is medically necessary. Referring Physician Date Referring Provider: Jace Alcaraz MD Re-Evaluation Information Diagnosis R 1st CMC arthroplasty Onset 01/31/22 Cause OA Subjective Information Patient reports the thumb has Query Text:As Reported By Patient/ been sore and achy, however Family he no longer is experiencing muscle spasms. He states that he is now able to use his right hand for ADL tasks, but continues to have residual soreness after. Pain Assessment Timing of Pain Assessment Timing of Pain Assessment Re-assessment Pain Scale Pain Scale Used Numeric (1 - 10) Self Report Pain Assessment Right Thumb(s) Reported Pain Level 4 Pain Description Aching Lowest Pain Intensity 0 Greatest Pain Intensity 8 Pain Score Pain Score 4: Self Report Additional Pain Score Comments Patient states he over did it the past week, reporting increased pain. Discussed and recommended that he continue to wear the brace for heavy tasks, such as when helping lift/transfer his . Interventions Used Interventions Used By Clinicians Education,Exercise Upper Extremity Range of Motion Elbow/Forearm Range of Motion Right Elbow/Forearm Range of Motion Comments Elbow flexion/extension are WNL. Forearm rotation is WNL. Wrist Range of Motion Right Wrist Flexion - Active 65 Wrist Extension - Active 70 Wrist Radial Deviation - Active 15 Wrist Ulnar Deviation - Active 30 Finger Range of Motion Right Reason Not Measured WNL/Right Finger Range of Motion Comments Trigger fingers noted in digits III and V. Thumb Range of Motion Right
== END 2022-03-03 13:01 | disposition home or self-care (01) ==
LOC: ANHOT 08:00
PROVIDERS: PCP Family Medicine; Visit Provider Orthopaedic Surgery
DX: M18.11 Unilateral primary osteoarthritis of first carpometacarpal joint, right hand (principal)
CPT/HCPCS: 97018; 97110; 97140; 97165

== ENCOUNTER 2022-03-16 06:34 | Outpatient (CLI) | payer MEDICARE, SELFPAY ==
--- NOTE | ~2022-03-16 | MR_ITS ---
EXAMINATION: MR hip LT wo con DATE: 03/16/2022 07:45 INDICATION: Left hip pain. TECHNIQUE: Magnetic resonance imaging (MRI) of the left hip was performed without intravenous contras t. COMPARISON: Left hip and pelvis radiograph 02/10/2022 FINDINGS: Bones/cartilage: Bone alignment is normal. No fracture. There is mild osteoarthritis of the hips. Labrum: There is degeneration of left acetabular labrum without well-defined tear. Fluid: There is no hip joint effusion. There is mild bilateral trochanteric bursitis. Soft tissues: There is mild tendinopathy of the hamstring origins bilaterally. The iliopsoas tendons are normal. Th ere is mild tendinopathy of the gluteus minimus tendons bilaterally. The gluteus medius tendons are n ormal. IMPRESSION: 1. Mild osteoarthritis of the hips. Reviewed, dictated and finalized at location A.
== END 2022-03-16 06:35 | disposition home or self-care (01) ==
PROVIDERS: PCP Family Medicine; Visit Provider Orthopaedic Surgery
DX: M70.62 Trochanteric bursitis, left hip (principal); M16.0 Bilateral primary osteoarthritis of hip
CPT/HCPCS: 73721

== ENCOUNTER 2022-05-05 08:29 | Outpatient (CLI) | payer MEDICARE, SELFPAY ==
[2022-05-05 09:04] LABS: Anion Gap 14 mmol/L (8-16); Blood Urea Nitrogen 23 mg/dL (9-20); Calcium 9.5 mg/dL (8.4-10.2); Carbon Dioxide 28 mmol/L (22-30); Chloride 101 mmol/L (98-107); Estimated Glomerular Filt Rate > 60; Glucose 118 mg/dL (65-110); Potassium 4.3 mmol/L (3.4-5.0); Sodium 143 mmol/L (137-145)
== END 2022-05-05 08:30 | disposition home or self-care (01) ==
LOC: ANHSURGERY 08:40
PROVIDERS: Anesthesiology; PCP Family Medicine; Visit Provider Orthopaedic Surgery
DX: Z79.899 Other long term (current) drug therapy (principal); Z01.818 Encounter for other preprocedural examination
CPT/HCPCS: 36415; 80048

== ENCOUNTER 2022-05-16 02:20 | Day surgery (SDC) | payer MEDICARE, SELFPAY ==
[2022-05-03 13:01] VITALS: BMI 29.7
--- NOTE | 2022-05-03 13:13 | PC.NURSE ---
PRE-OP INSTRUCTIONS, PLEASE READ CAREFULLY Report to the Outpatient Waiting Room, entrance under the green pavilion located off [facility], at time _0700_ on date _05/09/22_. OR Time: _0900_. Time changes happen often and if your time is changed the preop area will call you the afternoon before. - You and your visitor will be asked to self-screen and do not enter if you have any COVID symptoms. - Only one visitor and NO children visitors are allowed at this time. - The patient visitor is requested to leave or wait in car when not with patient due to restrictions. - A mask is required within the hospital. Patients may have clear liquids (water, carbonated beverages, clear teas, apple juice) until 3 hours prior to surgery (0600 AM) with a maximum of 20 ounces. - No food from midnight until time of surgery Take the following medications with a SIP of water the morning of surgery: _METOPROLOL, SERTRALINE, TYLENOL & LORAZEPAM IF NEEDED_ Medications to discontinue _ASPIRIN PER DR. SAUCEDO'S INSTRUCTIONS, MULTIVITAMIN 3 DAYS PRIOR TO SURGERY PER ANESTHESIA, Date to take last dose 05/05/22_ Please no make-up, nail panamanian, hairspray, perfume, deodorant, or body powder the day of surgery. No jewelry (including any body piercings) or valuables the day of surgery, leave them at home. Please take a shower or bath the night before, or the morning of, surgery with an antibacterial soap. Wear comfortable, loose fitting clothing. - Jewelry must be removed prior to entering the operating room. Rings and piercings that are not removed may be cut off. - The hospital will not accept responsibility for valuables. - Please leave all valuables, including medications, at home the day of surgery. If you are going home after surgery, a licensed straddle truck driver must drive you home. - NO public transportation without another adult. - We recommend that an adult stay with you for 24 hours following discharge. - We also recommend that you do not drive, make important decision, drink alcoholic beverages, or take any drugs that were not prescribed by your health care provider for at least 24 hours after your discharge time. Follow any additional instructions given to you from your surgeon. If you or anyone in your household have experienced Covid symptoms in the past week, please notify your surgeon or the nurse liaison at the phone number below for possible testing. Telephone instructions given to ___PT and asked if any additional questions and then verbalized understanding. Patient advised to call surgeon office or pre surgery nurse liaison [phone] if any additional questions.
--- NOTE | 2022-05-06 15:18 | WPDANESEPPF ---
Anes - Initial Pre Proc Eval Procedure: Operation Date: 05/09/22 09:00 Proposed Procedures p Debridement Left Hip Trochanteric Bursa, Proceed as Indicated - Jace Alcaraz MD Date/Time: 05/06/22 15:18 Surgeon: Jace Alcaraz MD Pre Op Diagnosis: Left Greater Trochanteric Bursitis Patient Data Age: 71 Gender: M Height: 1.78 m Weight: 94 kg Allergies Allergy/AdvReac Type Severity Reaction Status Date / Time Sulfa (Sulfonamide Allergy Unknown Rash Verified 05/03/22 12:57 Antibiotics) Home Medications Medication Instructions Recorded Confirmed Type aspirin 81 mg tablet,delayed 81 mg PO HS 08/12/19 05/03/22 History release (Aspir-) multivitamin,[id number] 1 tablet PO QAM 09/12/19 05/03/22 History (Complete Multivitamin tablet) cholecalciferol (vitamin D3) 25 5,000 unit PO QAM 05/31/21 05/03/22 History mcg (1,000 unit) capsule oxybutynin chloride 10 mg 15 mg PO HS 06/23/21 05/03/22 History tablet,extended release 24 hr acetaminophen 650 mg 650 mg PO Q12H PRN Pain 12/22/21 05/03/22 History tablet,extended release (Tylenol Arthritis Pain) atorvastatin 40 mg tablet 60 mg PO QHS #135 tabs 12/23/21 05/03/22 Rx metoprolol succinate 50 mg 50 mg PO QAM 12/29/21 05/03/22 History tablet,extended release 24 hr omeprazole 40 mg capsule,delayed 40 mg PO QAM 12/29/21 05/03/22 History release sertraline 50 mg tablet (Zoloft) 50 mg PO QAM 12/29/21 05/03/22 History lisinopril 20 0.5 tablet PO DAILY PRN 01/11/22 05/03/22 History mg-hydrochlorothiazide 12.5 mg HYPERTENSION tablet lorazepam 0.5 mg tablet 0.5 mg PO BID PRN anxiety #60 tabs 01/12/22 05/03/22 Rx Results Review: All pre-operative results and documents have been reviewed as part of the pre-operative evaluation. [facility] Past Medical History Medical History Anxiety Asthma CAD (coronary artery disease) Dyslipidemia Essential (primary) hypertension GERD (gastroesophageal reflux disease) History of heart disease History of panic attacks History of prostate cancer Hx of myocardial infarction Hyperlipidemia Kidney stone Obesity Osteoarthritis Overactive bladder Prediabetes Vitamin D deficiency Surgical History Surgical History Arthritis of carpometacarpal (CMC) joint of right thumb Suspension arthroplasty January 11, 2022 H/O knee surgery (~10/2017) left knee partial replacement 2016 History of incisional hernia repair (~09/2019) with symbotex mesh, da Marco A assisted 09/18/19 History of prostatectomy (~03/2019) History of right inguinal hernia repair (~2001) 2001, 2018 Hx laparoscopic cholecystectomy (~2001) Hx of heart artery stent (~04/2011) Family History Family History Mother Family history of cardiovascular disease Carcinoma of colon Father Cerebrovascular accident Sibling Heart disease COPD (chronic obstructive pulmonary disease) Social History Social History Smoking packs per day: 0.5 Smoking cigarettes per day: 10.0 Years smoked: 5 Smoking pack-years: 2.50 Smoking status: Former smoker Tobacco type: cigarettes Second hand tobacco smoke exposure: No Smoking end date: 08/07/85 Alcohol intake: former Substance use: never Substance use type: does not use Additional living arrangements comments: PT LIVES WITH SPOUSE DIVINA Gender identity (if verbalized by the patient): Male Sexual Orientation (if Verbalized by the Patient): Straight or Heterosexual Spiritual care concerns: No Anes - Eval Final PreProcedure Day of Procedure 05/06/22 15:18 Patient weight: obese Heart: regular rate and rhythm Lungs: decreased breath sounds Airway: Mallampati scale class 1 Neurological: alert and oriented Last oral intake: >/= 8 hours ASA classification
--- NOTE | 2022-05-09 11:19 | PC.NURSE ---
Report to the Outpatient Waiting Room, entrance under the green pavilion located off [facility], at time _9:15AM on date __05/16/22 . OR Time: __11:15AM . Time changes happen often and if your time is changed the preop area will call you the afternoon before. - You and your visitor will be asked to self-screen and do not enter if you have any COVID symptoms. - Only one visitor and NO children visitors are allowed at this time. - The patient visitor is requested to leave or wait in car when not with patient due to restrictions. - A mask is required within the hospital. Patients may have clear liquids (water, carbonated beverages, clear teas, apple juice) until 3 hours prior to surgery with a maximum of 20 ounces. - No food from midnight until time of surgery - Infants may have breast milk until 4 hours before surgery, formula 6 hours prior to surgery. - Children will be allowed to drink immediately following surgery. If applicable, please bring a bottle or sippy cup to assist with drinking. Juice, water, soda, and popsicles are readily available. For infants on formula, please bring formula the day of surgery. Pacifiers are allowed. Take the following medications with a SIP of water the morning of surgery: ___METOPROLOL, SERTRALINE, TYLENOL & LORAZEPAM NEEDED Medications to discontinue per physician ____HOLD ASPIRIN PER DR. SAUCEDO, HOLD VITAMIN 3 DAYS PRE-OP Date to take last dose 05/12/22 Please no make-up, nail spanish, hairspray, perfume, deodorant, or body powder the day of surgery. No jewelry (including any body piercings) or valuables the day of surgery, leave them at home. Please take a shower or bath the night before, or the morning of, surgery with an antibacterial soap. Wear comfortable, loose fitting clothing. Children are encouraged to wear pajamas. - Jewelry must be removed prior to entering the operating room. Rings and piercings that are not removed may be cut off. - The hospital will not accept responsibility for valuables. - Please leave all valuables, including medications, at home the day of surgery. If you are going home after surgery, a licensed mobile lounge driver must drive you home. - NO public transportation without another adult. - We recommend that an adult stay with you for 24 hours following discharge. - We also recommend that you do not drive, make important decision, drink alcoholic beverages, or take any drugs that were not prescribed by your health care provider for at least 24 hours after your discharge time. For Pediatric surgeries, we recommend two adults accompany the child home (only one inside the building at this time). Follow any additional instructions given to you from your surgeon. If you or anyone in your household have experienced Covid symptoms in the past week, please notify your surgeon or the nurse liaison at the phone number below for possible testing. Telephone instructions given to __PATIENT and asked if any additional questions and then verbalized understanding. Patient advised to call surgeon office or pre surgery nurse liaison [phone] if any additional questions.
[2022-05-16] VITALS (13 sets, daily range): BP systolic 108–148; BP diastolic 53–86; PULSE 68–83; RESP 12–20; TEMP 36.4–36.9; O2SAT 92–100
[2022-05-16] MEDS: ACETAMINOPHEN 500 MG TABLET 1000 MG PO (09:12)
--- NOTE | 2022-05-16 09:28 | WPDANESEPPF ---
Anes - Initial Pre Proc Eval Procedure: Operation Date: 05/16/22 11:15 Proposed Procedures p Debridement Left Hip Trochanteric Bursa, Proceed as Indicated - Jace Alcaraz MD Date/Time: 05/16/22 09:28 Surgeon: Jace Alcaraz MD Pre Op Diagnosis: Left Greater Trochanteric Bursitis Patient Data Age: 71 Gender: M Height: 1.78 m Weight: 94 kg Allergies Allergy/AdvReac Type Severity Reaction Status Date / Time Sulfa (Sulfonamide Allergy Unknown Rash Verified 05/16/22 09:10 Antibiotics) Home Medications Medication Instructions Recorded Confirmed Type aspirin 81 mg tablet,delayed 81 mg PO HS 08/12/19 05/16/22 History release (Aspir-) multivitamin,[id number] 1 tablet PO QAM 09/12/19 05/16/22 History (Complete Multivitamin tablet) cholecalciferol (vitamin D3) 25 5,000 unit PO QAM 05/31/21 05/16/22 History mcg (1,000 unit) capsule oxybutynin chloride 10 mg 15 mg PO HS 06/23/21 05/16/22 History tablet,extended release 24 hr acetaminophen 650 mg 650 mg PO Q12H PRN Pain 12/22/21 05/16/22 History tablet,extended release (Tylenol Arthritis Pain) atorvastatin 40 mg tablet 60 mg PO QHS #135 tabs 12/23/21 05/16/22 Rx metoprolol succinate 50 mg 50 mg PO QAM 12/29/21 05/16/22 History tablet,extended release 24 hr omeprazole 40 mg capsule,delayed 40 mg PO QAM 12/29/21 05/16/22 History release sertraline 50 mg tablet (Zoloft) 50 mg PO QAM 12/29/21 05/16/22 History lisinopril 20 0.5 tablet PO DAILY PRN 01/11/22 05/16/22 History mg-hydrochlorothiazide 12.5 mg HYPERTENSION tablet lorazepam 0.5 mg tablet 0.5 mg PO BID PRN anxiety #60 tabs 01/12/22 05/16/22 Rx Patient hx anesthesia problems: other (confusion) Family hx anesthesia problems: none Results Review: All pre-operative results and documents have been reviewed as part of the pre-operative evaluation. [facility] Past Medical History Medical History Anxiety Asthma CAD (coronary artery disease) Dyslipidemia Essential (primary) hypertension GERD (gastroesophageal reflux disease) History of heart disease History of panic attacks History of prostate cancer Hx of myocardial infarction Hyperlipidemia Kidney stone Obesity Osteoarthritis Overactive bladder Prediabetes Vitamin D deficiency Surgical History Surgical History Arthritis of carpometacarpal (CMC) joint of right thumb Suspension arthroplasty January 11, 2022 H/O knee surgery (~10/2017) left knee partial replacement 2016 History of incisional hernia repair (~09/2019) with symbotex mesh, da Marco A assisted 09/18/19 History of prostatectomy (~03/2019) History of right inguinal hernia repair (~2001) 2001, 2018 Hx laparoscopic cholecystectomy (~2001) Hx of heart artery stent (~04/2011) Family History Family History Mother Family history of cardiovascular disease Carcinoma of colon Father Cerebrovascular accident Sibling Heart disease COPD (chronic obstructive pulmonary disease) Social History Social History Smoking packs per day: 0.5 Smoking cigarettes per day: 10.0 Years smoked: 5 Smoking pack-years: 2.50 Smoking status: Former smoker Tobacco type: cigarettes Second hand tobacco smoke exposure: No Smoking end date: 08/07/85 Alcohol intake: former Substance use: never Substance use type: does not use Living arrangements: with family Additional living arrangements comments: PT LIVES WITH [facility] Gender identity (if verbalized by the patient): Male Sexual Orientation (if Verbalized by the Patient): Straight or Heterosexual Spiritual care concerns: No Anes - Eval Final PreProcedure Day of Procedure 05/16/22 09:28 Patient weight: overweight Heart: regular rate and rhythm Lung
[2022-05-16] MEDS: LACTATED RINGERS 1,000 ML 30 ML IV CONT (09:50)
[2022-05-16] MEDS: KETOROLAC 15 MG/ML VIAL (*BKC) IV PUSH (09:55)
[2022-05-16 09:56] LABS: Glucose Point of Care 105 mg/dl (65-105)
--- NOTE | 2022-05-16 09:58 | WPDHPUPDATE1 ---
History and Physical Update Update Date/Time: 05/16/22 09:58 History and Physical has been reviewed, including an updated exam of the patient. There are NO changes in the patient's condition. Risks, benefits, and alternatives have been discussed and questions answered. Patient agrees to proceed with procedure.
--- NOTE | 2022-05-16 13:06 | P.OP_ITS ---
Procedure Note - Detailed Date of Procedure 05/16/22 Pre-op Diagnosis Left Greater Trochanteric Bursitis Post-op Diagnosis Same Procedure Performed Left hip greater trochanteric bursal debridement with removal exostosis distal portion of greater trochanter. Surgeon Jace Alcaraz MD [facility] Anesthesia General Description of Procedure The patient was identified and proper site identified. Was taken to the operating room and transferred to the OR table. After general anesthetic induction and intubation he was put in the right lateral decubitus position in the usual manner for left hip procedure. Care was taken to pad and position his torso and extremities. The left hip and thigh were prepped free in usual sterile fashion. Longitudinal incision was made over the proximal femur laterally. Subcutaneous tissue was sharply dissected down to the ITB band. Hemostasis carried out throughout the procedure. IT band was divided in line with the incision. There was quite a bit of thickened inflamed and tight bursal tissue overlying the greater trochanter particularly over the exostosis that could be palpated at the origin of the vastus lateralis. The inflamed and tight bursa was released and removed. Soft tissue overlying the exostosis was divided longitudinally exposing the exostosis which was then able to be removed with an osteotome. Wound was irrigated with sterile saline. The soft tissue over the excision site was reapproximated with 0 Vicryl suture. The ITB band was reapproximated with a looped PDS as was the deeper layers of the subcutaneous tissue. Skin reapproximated with 3-0 Monocryl, 2-0 Quill and tissue adhesive. Sterile dressing was applied. Patient was awakened, extubated and taken to recovery area in stable condition. There were no known intraoperative complications. Estimated blood loss was 100 milliliters. He received periope rative antibiotics. Estimated Blood Loss 100 Drains No Packing No Pathology None sent Complications No immediate complications Condition Stable Disposition PACU
[2022-05-16 13:25] LABS: Glucose Point of Care 118 mg/dl (65-105)
[2022-05-16] MEDS: fentaNYL CITRATE INJ (*CRX) 100 MCG/2 ML VIAL 25 MCG IV PUSH ×4 (13:50→14:17)
--- NOTE | 2022-05-16 15:00 | ADMGEN ---
This patient, Jorje Acuña, was admitted to -. Patient/family oriented to hospital policies and general routines including ID bracelet, bed and alarms, visiting hours, pain management, procedures, bathroom and other care routines, personal items, smoking policy, room service/diet, and visiting hours. Information on how to activate the Rapid Response Team has been discussed. Patient/Family are encouraged to report perceived risks to care and to ask questions if they do not understand what they are told or what they should do.
[2022-05-16] MEDS: SENNA/DOCUSATE SODIUM TABLET 2 TAB PO (17:30)
[2022-05-16] MEDS: oxyCODONE HCL (*CRX) 5 MG TAB IR PO ×2 (17:30→21:05)
[2022-05-16] MEDS: ceFAZolin 2 GM/D5W 50 ML 2 GM/50 ML BAG IVPB (17:31)
[2022-05-16] MEDS: ACETAMINOPHEN 325 MG TABLET 650 MG PO (17:31)
[2022-05-16] MEDS: ASPIRIN 325 MG ENTERIC TABLET PO (21:09)
[2022-05-16] MEDS: ATORVASTATIN 20 MG TABLET 60 MG PO (21:09)
--- NOTE | 2022-05-16 23:30 | WPDCN ---
Assessment and Plan Assessment and plan (1) Greater trochanteric bursitis of left hip: Code(s): M70.62 - Trochanteric bursitis, left hip Status: Acute Assessment and Plan: Postoperative day 0 status post left hip greater trochanteric bursal debridement with removal of exostosis. Wound care, pain control, and DVT prophylaxis deferred to Dr. Alcaraz. Check baseline labs in a.m. (2) Coronary artery disease: Code(s): I25.10 - Atherosclerotic heart disease of [place] coronary artery without angina pectoris Status: Acute Assessment and Plan: Followed by Dr. Quiles every 6 months without recent problems. Continue aspirin, statin, and beta-katheryn. (3) Essential hypertension: Code(s): I10 - Essential (primary) hypertension Status: Acute Assessment and Plan: Blood pressures were reviewed and they have been stable postoperatively. Resume antihypertensives and monitor. (4) Hyperlipidemia: Code(s): E78.5 - Hyperlipidemia, unspecified Status: Acute Assessment and Plan: Continue statin and check LFTs in a.m. (5) Prediabetes: Code(s): R73.03 - Prediabetes Status: Acute Assessment and Plan: Random glucose this afternoon was 118. Check fasting glucose in a.m. (6) Anxiety: Code(s): F41.9 - Anxiety disorder, unspecified Status: Acute Assessment and Plan: Continue sertraline and lorazepam as needed. Plan Thank you for allowing us to participate in this patient's care. Please do not hesitate to contact us with any questions. Supervising physician for this medical consultation is Dr. Vickey Brink. HPI Data of Consult Date/Time: 05/16/22 23:30 Requesting Physician: Jace Alcaraz MD Primary Care Provider: Marquis George MD Consult Narrative Reason for consult: Postoperative medical management. Narrative: This is a very pleasant 71-year-old male whom the hospitalist service has been consulted for help managing his medical conditions postoperatively. He was admitted today after undergoing a left hip greater trochanteric bursal debridement with removal of exostosis for left greater trochanteric bursitis which has been giving him grief for several weeks. His surgery was performed under general anesthesia with no immediate complications documented an estimated blood loss of 100 milliliters. He has done well in the postop period and his pain is well controlled. He is hoping that he will be able to go home tomorrow. He denies postoperative fever, chills, sweats, chest pain, shortness a breath, nausea, and vomiting. His medical history is significant for coronary artery disease status post stent times to several years ago. He sees Dr. Quiles every 6 months and he has not had any issues with exertional chest pain or shortness of breath. He is treated for hypertension and hyperlipidemia and both of those are well controlled to his knowledge. He also suffers from GERD which is treated with omeprazole. He has had quite a bit of stress recently his has been ill and he takes sertraline and lorazepam as needed for such. Review of Systems Review of Systems: Twelve systems were reviewed. No recent cold or flu symptoms. No nausea, vomiting, or diarrhea. Occasional constipation. No history of venous thromboembolism. Overactive bladder following prostatectomy for prostate cancer years ago. Except as documented, all other systems were reviewed and are negative. [facility] Past Medical History Medical History (Updated 05/17/22 @ 00:33 by Marlen Orozco PA-C) Anxiety Asthma Coronary artery disease Dyslipidemia Essential hypertension Gastroesophageal reflux disease Hyperlipidemia Kidney stone Myocardial infarction Obesity Osteoarthritis Overactive bladder Prediabetes Prostate cancer Vitamin D deficiency Surgical History Surgical History (Updated 05/16/22 @ 23:49 by Marlen Orozco PA-C)
[2022-05-17] MEDS: oxyCODONE HCL (*CRX) 5 MG TAB IR PO ×5 (00:25→13:13)
[2022-05-17] MEDS: ACETAMINOPHEN 325 MG TABLET 650 MG PO ×3 (00:25→12:03)
[2022-05-17] MEDS: ceFAZolin 2 GM/D5W 50 ML 2 GM/50 ML BAG IVPB ×2 (00:26→08:50)
[2022-05-17 00:37] VITALS: BP 129/72; PULSE 81; RESP 18; TEMP 36.2; O2SAT 95
[2022-05-17] MEDS: LORazepam (*CRX) 0.5 MG TABLET PO (02:24)
[2022-05-17 04:37] VITALS: BP 119/77; PULSE 79; RESP 20; TEMP 36.9; O2SAT 98
[2022-05-17 05:42] LABS: Basophils Percent Auto 0.1 % (0.2-1.2); Hemoglobin 13.7 g/dL (14.0-18.0); Immature Granulocyte Absolute 0.13 K/mm3 (0.00-0.031); Immature Granulocyte Percent A 0.9 % (0-0.5); Lymphocytes Percent Auto 7.9 % (18.3-44.2); Mean Corpuscular HGB Conc 32.6 g/dl (32-36); Mean Corpuscular Hemoglobin 30.8 pg (26-34); Mean Corpuscular Volume 94.4 fl (80-100); Mean Platelet Volume 8.6 fl (7.4-10.4); Monocytes Absolute Auto 0.5 K/mm3 (0.1-0.6); Monocytes Percent Auto 3.6 % (2.6-8.5); Neutrophils Absolute Auto 12.2 K/mm3 (1.3-6.7); Neutrophils Percent Auto 87.5 % (45.5-73.1); Platelet Count Result 259 k/mm3 (150-375); Red Blood Count 4.45 M/mm3 (4.6-6.20); Red Cell Distribution Width 14.1 % (11.5-14.5); White Blood Count 13.9 K/mm3 (4.5-10.0)
[2022-05-17 05:56] LABS: Alanine Aminotransferase 44 U/L (6-50); Albumin Level 4.4 g/dL (3.5-5.1); Alkaline Phosphatase 47 U/L (38-126); Anion Gap 14 mmol/L (8-16); Aspartate Amino Transferase 40 U/L (17-59); Bilirubin,Total 0.7 mg/dL (0.2-1.3); Blood Urea Nitrogen 21 mg/dL (9-20); Calcium 9.1 mg/dL (8.4-10.2); Carbon Dioxide 25 mmol/L (22-30); Chloride 100 mmol/L (98-107); Estimated CRCL calculation 62 ml/min; Estimated Glomerular Filt Rate > 60; Glucose 138 mg/dL (65-110); Potassium 4.4 mmol/L (3.4-5.0); Sodium 139 mmol/L (137-145)
[2022-05-17 08:37] VITALS: BP 114/70; PULSE 82; RESP 18; TEMP 36.6; O2SAT 97
[2022-05-17 08:50] VITALS: PULSE 80
[2022-05-17] MEDS: SENNA/DOCUSATE SODIUM TABLET 2 TAB PO (08:50)
[2022-05-17] MEDS: THERAPEUTIC MULTIVITAMINS/MINERALS TAB (*BKC) 1 TABLET PO (08:50)
[2022-05-17] MEDS: METOPROLOL SUCCINATE EXT REL 50 MG TABCR PO (08:50)
[2022-05-17] MEDS: PANTOPRAZOLE 40 MG TABLET PO (08:50)
[2022-05-17] MEDS: CHOLECALCIFEROL 1,000 UNITS TABLET 5000 UNITS PO (08:50)
[2022-05-17] MEDS: ASPIRIN 325 MG ENTERIC TABLET PO (08:50)
[2022-05-17] MEDS: SERTRALINE HCL 50 MG TABLET PO (08:51)
[2022-05-17] MEDS: polyethylene glycoL 3350 17 GM POWD.PACK PO (08:51)
--- NOTE | 2022-05-17 10:00 | PM.IMPN ---
Progress Note: A&P Assessment and Plan (1) Greater trochanteric bursitis of left hip: Code(s): M70.62 - Trochanteric bursitis, left hip Status: Acute Assessment and Plan: Postoperative day 1 status post left hip greater trochanteric bursal debridement with removal of exostosis. Wound care, pain control, and DVT prophylaxis deferred to Dr. Alcaraz. baseline labs appear to be stable (2) Coronary artery disease: Code(s): I25.10 - Atherosclerotic heart disease of [place] coronary artery without angina pectoris Status: Acute Assessment and Plan: Followed by Dr. Quiles every 6 months without recent problems. Continue aspirin, statin, and beta-katheryn. (3) Essential hypertension: Code(s): I10 - Essential (primary) hypertension Status: Acute Assessment and Plan: Current BP 119/77 Remains stable Blood pressures were reviewed and they have been stable postoperatively. Resume antihypertensives and monitor. (4) Hyperlipidemia: Code(s): E78.5 - Hyperlipidemia, unspecified Status: Acute Assessment and Plan: Continue statin LFTs normal (5) Prediabetes: Code(s): R73.03 - Prediabetes Status: Acute Assessment and Plan: Random glucose this afternoon was 118. glucose stable at 138 (6) Anxiety: Code(s): F41.9 - Anxiety disorder, unspecified Status: Acute Assessment and Plan: Continue sertraline and lorazepam as needed. Time Spent With Patient Time with patient: Greater than 35 minutes Subjective Date/time seen: 05/17/22 1000 Interval history: 05/17/22 1000 Patient is doing really well today. He has no complaints. He was walking on the huizar and did really well. He stated that he is going to be discharged. He should do well and have a great outcome. 05/16/22? 23:30 This is a very pleasant 71-year-old male whom the hospitalist service has been consulted for help managing his medical conditions postoperatively. He was admitted today after undergoing a left hip greater trochanteric bursal debridement with removal of exostosis for left greater trochanteric bursitis which has been giving him grief for several weeks. His surgery was performed under general anesthesia with no immediate complications documented an estimated blood loss of 100 milliliters. He has done well in the postop period and his pain is well controlled. He is hoping that he will be able to go home tomorrow. He denies postoperative fever, chills, sweats, chest pain, shortness a breath, nausea, and vomiting. His medical history is significant for coronary artery disease status post stent times to several years ago. He sees Dr. Quiles every 6 months and he has not had any issues with exertional chest pain or shortness of breath. He is treated for hypertension and hyperlipidemia and both of those are well controlled to his knowledge. He also suffers from GERD which is treated with omeprazole. He has had quite a bit of stress recently his has been ill and he takes sertraline and lorazepam as needed for such. Review of Systems Review of Systems: All systems reviewed & are unremarkable except as noted in HPI and below Exam Const: General: cooperative, healthy appearing, no acute distress, well developed, alert, awake and well nourished Nutritional Appearance: well nourished Orientation/consciousness: patient oriented x3 Limitations: no limitations HENMT: Head: normal to inspection Ears: hearing grossly normal bilaterally Face/Nose/Sinus: Normal external nose present Mouth: Yes Normal oral and palatal mucosa present, Yes lip normal and Yes tongue normal Teeth and gingiva: abnormal tooth and associated gingiva and poor dentition Eyes: General: appearance normal, both eyes and all related structures Neck: Neck: normal visual inspection, full ROM, trachea midline and supple Chest: Chest palpation & inspection: normal in
--- NOTE | 2022-05-17 11:22 | PM.DS ---
DS: Admitting Diagnosis Discharge Date 05/17/2022 Admitting Diagnosis left hip trochanteric bursitis DS: Discharge Diagnosis Discharge Diagnosis (1) Greater trochanteric bursitis of left hip: Code(s): M70.62 - Trochanteric bursitis, left hip Status: Acute Plan 71-year-old male postop day 1 after left hip greater trochanteric bursal debridement with removal exostosis distal portion of greater trochanter per Dr. Alcaraz. overall doing very well. Uneventful overnight stay. Pain is well controlled. Plan to see him in the office in 2 weeks for wound check. He will maintain weight-bearing as tolerated status and use a walker for 2 weeks. postoperative wound care and medications were discussed with him in detail. He was informed to call our office with any further questions or concerns prior to his scheduled follow-up. DS: Summary Hospital Course Reason for hospitalization: observation after outpatient procedure Hospital Course: 71-year-old male admitted for observation after left hip greater trochanteric bursal debridement with removal exostosis distal portion of greater trochanter. pain is well controlled. Chronic medical problems addressed with hospitalist consult. Appreciate input. Plan discharge today. Status at Discharge Functional status at discharge: uses cane/walker Overall status at discharge: patient is progressing back to baseline Time Spent with Patient Time attestation: Total time spent providing and/or coordinating discharge services: Time spent: Less than 30 minutes Exam Const: General: comfortable and no acute distress Eyes: General: appearance normal, both eyes and all related structures Resp: Effort & Inspection: normal respiratory effort GI: Inspection: non-distended Extrem: Other: Exam of the left lower extremity reveals a clean and dry surgical dressing. No irritability with hip mobility. Minimal swelling to the left lower extremity. Calves negative. Neurovascular status left lower extremity is intact. Psych: Mental Status: mental status grossly normal DS: Data Data Completed and Pending Labs on day of discharge: Labs from last 24 hours 05/17/22 05/17/22 05/16/22 05:14 05:14 13:23 WBC 13.9 H RBC 4.45 L Hgb 13.7 L Hct 42.0 MCV 94.4 MCH 30.8 MCHC 32.6 RDW 14.1 Plt Count 259 MPV 8.6 Immature Gran % (Auto) 0.9 H Neut % (Auto) 87.5 H Lymph % (Auto) 7.9 L [place] % (Auto) 3.6 Eos % (Auto) 0.0 Baso % (Auto) 0.1 L Lymph # (Auto) 1.10 [place] # (Auto) 0.5 Eos # (Auto) 0.0 Baso # (Auto) 0.0 Abs Immat Gran (auto) 0.13 H Absolute Neuts (auto) 12.2 H Absolute Nucleated RBC 0.0 Nucleated RBC % 0.0 Sodium 139 Potassium 4.4 Chloride 100 Carbon Dioxide 25 Anion Gap 14 BUN 21 H Creatinine 1.00 Estim Creat Clear Calc 62 Estimated GFR > 60 Glucose 138 H POC Capillary Glucose 118 H Calcium 9.1 Total Bilirubin 0.7 AST 40 ALT 44 Alkaline Phosphatase 47 Total Protein 7.0 Albumin 4.4 Discharge Plan Discharge Patient Disposition: Home, Self-Care Discharge Instructions: 3 times daily for 20 minutes each time, reclining in bed with ice packs over the incision and a pillow underneath the calf of the affected leg, not under the knee. Your wound is glued so it is okay to remove the dressing, get into the shower and get the wound wet in two days. Be sure to read through all the information that came from a my office and the hospital. Most of the answers you will need can be found that material. Call the office with any questions that you cannot find answers to, or concerns you may have. You will be taking one coated 325 mg aspirin daily and do this for four more weeks before going back to your daily baby aspirin. Please call [facility] at as soon as possible to arrange for/verify your follow-up appointment to be seen in 2
== END 2022-05-17 13:50 | disposition home or self-care (01) ==
LOC: ANHSURGERY 13:06 → ANH2MED 15:09
PROVIDERS: Physician Assistant; PCP Family Medicine; Visit Provider Orthopaedic Surgery
PROC: (CPT 27062; principal; 2022-05-16 11:15)
DX: M70.62 Trochanteric bursitis, left hip (principal); Z79.82 Long term (current) use of aspirin; I25.10 Atherosclerotic heart disease of native coronary artery without angina pectoris; I10 Essential (primary) hypertension; E78.5 Hyperlipidemia, unspecified; E55.9 Vitamin D deficiency, unspecified; R73.03 Prediabetes; J45.909 Unspecified asthma, uncomplicated; F41.9 Anxiety disorder, unspecified; K21.9 Gastro-esophageal reflux disease without esophagitis; I25.2 Old myocardial infarction; N32.81 Overactive bladder; E66.9 Obesity, unspecified; Z68.30 Body mass index [BMI] 30.0-30.9, adult; Z87.891 Personal history of nicotine dependence
CPT/HCPCS: 27062; 36415; 80053; 82948; 85025; 97161; 97165; 97530; 97535; A9270; J0690; J1100; J1885; J2250; J2405; J2704; J2710; J3010; J7120

== ENCOUNTER → 2023-01-18 09:22 | Outpatient (CLI) | payer MEDICARE, SELFPAY ==
--- NOTE | ~2023-01-18 | US_ITS ---
EXAMINATION: US aorta DATE: 01/19/2023 10:00 INDICATION: Abdominal aortic aneurysm screening, prior smoker TECHNIQUE: Grayscale, color Doppler, and pulsed Doppler images of the aorta and common iliac arteries were obtained. COMPARISON: None. FINDINGS: Maximum vascular dimensions are as follows: Proximal aorta: 2.6 cm Mid aorta: 2.3 cm Distal aorta: 2.0 cm Right common iliac artery: 1.1 cm Left common iliac artery: 1.1 cm There is no evidence of abdominal aortic aneurysm. IMPRESSION: 1. No sonographically detected abdominal aortic aneurysm. Reviewed, dictated and finalized at location A.
== END ==
PROVIDERS: PCP Nurse Practitioner Family; Visit Provider Nurse Practitioner Family
DX: Z13.6 Encounter for screening for cardiovascular disorders (principal); Z87.891 Personal history of nicotine dependence
CPT/HCPCS: 76775

== ENCOUNTER 2023-06-10 23:36 | Emergency (ER) | payer MEDICARE, SELFPAY ==
--- NOTE | ~2023-06-10 | XR_ITS ---
EXAMINATION: XR chest 2V DATE: 06/11/2023 00:23 INDICATION: Shortness of breath TECHNIQUE: PA and lateral views of the chest are obtained. COMPARISON: 05/26/2021 FINDINGS: The lungs are free of acute opacities. No pleural effusion or pneumothorax. The cardiomedia stinal silhouette is normal. There is mild thoracic spondylosis. Surgical clips in the upper abdomen on the lateral view are likely from prior cholecystectomy. IMPRESSION: 1. No acute cardiopulmonary abnormality. Reviewed, dictated and finalized at location F. INVESTIGATION MANAGER
--- NOTE | ~2023-06-10 | XR_ITS ---
EXAMINATION: XR ankle LT min 3V DATE: 06/11/2023 00:25 INDICATION: Left ankle pain and swelling TECHNIQUE: Anteroposterior, lateral, mortise, and additional oblique view of the ankle were obtained. COMPARISON: None. FINDINGS: Bone alignment is normal. There is no fracture. A plantar calcaneal enthesophyte is noted. There is calcified atherosclerosis. IMPRESSION: 1. No acute osseous abnormality. Reviewed, dictated and finalized at location F. ENT SERVICE TECHNICIAN PST
--- NOTE | ~2023-06-10 | CT_ITS ---
EXAMINATION: CT abdomen pelvis w con INDICATION: Abdominal pain TECHNIQUE: Computed tomographic images of the abdomen and pelvis were obtained after the administrati on of 100 cc of Omnipaque 350 intravenous contrast. The dose-length product (DLP) was 992.10 mGy-cm. Automated exposure control and iterative reconstruction technique were employed. COMPARISON: 03/22/2019 FINDINGS: The lung bases are clear. The heart size is normal. The gallbladder is surgically absent. T here is mild enlargement of the common bile duct and central intrahepatic ducts which is likely due t o post cholecystectomy state. The liver is diffusely low in attenuation when compared with the spleen , consistent with hepatic steatosis. The spleen, pancreas, and adrenal glands are normal. There is a moderate sized diverticulum at the junction of the second and third portions of the duodenum. There i s a 3 mm nonobstructing stone of the left kidney. There is a 5 mm cyst of the right kidney. Areas of cortical scarring in the kidneys may reflect prior infection or infarction. No pathologically enlarge d abdominal or pelvic lymph nodes are identified. No free intraperitoneal gas or evidence of bowel ob struction. There is calcified atherosclerosis of the aorta and many of the other arteries. Intramuscu lar lipomas are noted in the abdominal wall. There is mild lumbar spondylosis. IMPRESSION: 1. No CT correlate for the patient's symptoms. Reviewed, dictated and finalized at location F. ER ASSOCIATE
[2023-06-10 23:37] VITALS: BP 167/91; PULSE 83; RESP 19; TEMP 36.6; O2SAT 100
--- NOTE | 2023-06-10 23:44 | ECG_ITS ---
Measurements Intervals [place] Rate: 80 P: 41 IN: 170 QRS: 5 QRSD: 112 T: 28 QT: 386 QTc: 446 Interpretive Statements SINUS RHYTHM INTRAVENTRICULAR CONDUCTION DELAY BASELINE ARTIFACT- I, II, III, AVR, AVL, AVF BORDERLINE ECG COMPARED TO ECG 05/26/2021 13:07:04 INTRAVENTRICULAR CONDUCTION DELAY NOW PRESENT Electronically Signed On 06-11-2023 6:49:15 [employer] by Ramon Fernandez D.O.
--- NOTE | 2023-06-10 23:51 | ED.NAVMDI ---
HPI - Nausea/Vomiting/Diarrhea General Chief complaint: Nausea/Vomiting/Diarrhea Stated complaint: diarrhea Time Seen by Provider: 06/10/23 23:43 History of Present Illness HPI Narrative: Patient is a 72-year-old male with history of CAD status post PCI x2, known ventral hernia, status post multiple inguinal hernia repairs here with multiple symptoms including nausea, diarrhea, abdominal pain, dizziness. He states the symptoms began this morning with multiple bouts of diarrhea. He has some abdominal pain located across the mid abdomen diffusely. the pain is cramping in nature. He notes associated nausea. He also notes that he is having some fluttering in his right chest and feels as though he may pass out when he gets up and walks around. He denies any chest pain but is experiencing some shortness of breath. he denies any sick contacts. Denies any fever or chills. Of note he additionally noted some ankle pain and swelling on the left side, he is unsure when this began however it was pointed out to him by EMS. He notes a family history of PE/DVT. Related Data Home Medications Medication Instructions Recorded Confirmed aspirin 81 mg tablet,delayed 81 mg PO HS 08/12/19 07/13/22 release (Aspir-) multivitamin,[id number]-[id number] 1 tablet PO QAM 09/12/19 07/13/22 (Complete Multivitamin tablet) cholecalciferol (vitamin D3) 25 5,000 unit PO QAM 05/31/21 07/13/22 mcg (1,000 unit) capsule oxybutynin chloride 10 mg 15 mg PO HS 06/23/21 07/13/22 tablet,extended release 24 hr acetaminophen 650 mg 650 mg PO Q12H PRN Pain 12/22/21 07/13/22 tablet,extended release (Tylenol Arthritis Pain) metoprolol succinate 50 mg 50 mg PO QAM 12/29/21 07/13/22 tablet,extended release 24 hr sertraline 100 mg tablet 100 mg PO DAILY 07/13/22 07/13/22 Allergies Allergy/AdvReac Type Severity Reaction Status Date / Time Sulfa (Sulfonamide Allergy Unknown Rash Verified 06/10/23 23:58 Antibiotics) Review of Systems Review of Systems: All systems reviewed & are unremarkable except as noted in HPI and below PMFSH Past Medical History Medical History (Updated 06/11/23 @ 05:05 by Anna Humphreys MD) Anxiety Asthma Coronary artery disease Dyslipidemia Essential hypertension Gastroesophageal reflux disease Hyperlipidemia Kidney stone Myocardial infarction Obesity Osteoarthritis Overactive bladder Prediabetes Prostate cancer Vitamin D deficiency Surgical History Surgical History (Updated 07/13/22 @ 08:57 by Jace Alcaraz MD) Arthritis of carpometacarpal (CMC) joint of right thumb Suspension arthroplasty January 11, 2022 Greater trochanteric bursitis of left hip debridement with exostectomy 05/16/2022 History of coronary artery stent placement (04/2011) History of incisional hernia repair (09/18/19) da Vinvi assisted with symbotex mesh. History of laparoscopic cholecystectomy (2001) History of prostatectomy (03/2019) History of right inguinal hernia repair 2001, 2018 Status post left partial knee replacement (10/2017) Family History Family History Mother Family history of cardiovascular disease Carcinoma of colon Father Cerebrovascular accident Sibling Heart disease COPD (chronic obstructive pulmonary disease) Social History Social History Social History: Surrogate medical decision maker: kirk Brennan. Code status: Full code. Smoking packs per day: 0.5 Smoking cigarettes per day: 10.0 Years smoked: 5 Smoking pack-years: 2.50 Smoking status: Former smoker Second hand tobacco smoke exposure: No Alcohol intake: former Substance use: never Substance use type: does not use Living arrangements: with family Additional living arrangements comments: The patient lives with his Leatha in [place]. He is originally from [place] and moved here about 20+ years ago.
[2023-06-11 00:06] LABS: Alanine Aminotransferase 32 U/L (6-50); Alkaline Phosphatase 56 U/L (38-126); Anion Gap 11 mmol/L (8-16); Aspartate Amino Transferase 34 U/L (17-59); Bilirubin,Total 0.7 mg/dL (0.2-1.3); Blood Urea Nitrogen 17 mg/dL (9-20); Carbon Dioxide 23 mmol/L (22-30); Chloride 103 mmol/L (98-107); Estimated CRCL calculation 76 ml/min; Estimated Glomerular Filt Rate > 60; Glucose 129 mg/dL (65-110); Lipase 138 U/L (23-300); Potassium 3.5 mmol/L (3.4-5.0); Sodium 137 mmol/L (137-145)
[2023-06-11 00:08] LABS: Basophils Percent Auto 0.4 % (0.2-1.2); Eosinophils Absolute Auto 0.1 K/mm3 (0-0.3); Eosinophils Percent Auto 0.7 % (0-4.4); Hematocrit 38.8 % (42.0-52.0); Hemoglobin 13.1 g/dL (14.0-18.0); Immature Granulocyte Absolute 0.03 K/mm3 (0.00-0.031); Immature Granulocyte Percent A 0.3 % (0-0.5); Lymphocytes Absolute Auto 1.71 K/mm3 (0.9-3.2); Lymphocytes Percent Auto 18.6 % (18.3-44.2); Mean Corpuscular HGB Conc 33.8 g/dl (32-36); Mean Corpuscular Volume 82.9 fl (80-100); Mean Platelet Volume 9.3 fl (7.4-10.4); Monocytes Absolute Auto 0.7 K/mm3 (0.1-0.6); Monocytes Percent Auto 7.4 % (2.6-8.5); Neutrophils Absolute Auto 6.7 K/mm3 (1.3-6.7); Neutrophils Percent Auto 72.6 % (45.5-73.1); Platelet Count Result 249 k/mm3 (150-375); Red Blood Count 4.68 M/mm3 (4.6-6.20); Red Cell Distribution Width 14.3 % (11.5-14.5); White Blood Count 9.2 K/mm3 (4.5-10.0)
[2023-06-11 00:13] LABS: Prothrombin Time 13.8 Seconds (11.1-14.7)
[2023-06-11 00:14] LABS: Partial Thromboplastin Time 27.8 SECONDS (22.3-36.8)
[2023-06-11 00:17] LABS: Troponin I < 0.012 ng/mL (0.000-0.034)
[2023-06-11] MEDS: MORPHINE SULFATE (*CRX) 4 MG/ML INJ IV PUSH ×2 (00:40→03:51)
[2023-06-11] MEDS: ONDANSETRON INJ 4 MG/2 ML VIAL IV PUSH (00:40)
[2023-06-11] MEDS: SODIUM CHLORIDE 0.9% IV 1,000 ML 999 ML IV CONT (00:40)
[2023-06-11 00:50] LABS: Influenza A QL RT-PCR Negative (Negative); Influenza B QL RT-PCR Negative (Negative); RSV RNA, RT-PCR Negative (Negative); SARS-CoV-2 RNA PCR Negative (Negative)
[2023-06-11 00:58] LABS: Appearance Urine Clear (Clear); Bilirubin Urine Negative (Negative); Blood Urine Negative (Negative); Color Urine Yellow (Yellow); Glucose Urine UA Negative (Negative); Ketones Urine Negative (Negative); Leukocyte Esterase Ur Negative LEU/UL (Negative); Nitrate Urine Negative (Negative); Protein Urine Negative (Negative); Specific Grav Ur 1.009 (1.001-1.035); Urobilinogen Urine 0.2 mg/dL (<2.0)
[2023-06-11 01:10] LABS: Add Urine Microscopic? NO
[2023-06-11 01:27] VITALS: BP 150/87; PULSE 85; RESP 15; O2SAT 95
[2023-06-11 02:09] LABS: Troponin I < 0.012 ng/mL (0.000-0.034)
[2023-06-11 02:46] VITALS: BP 159/90; PULSE 82; RESP 16; O2SAT 95
[2023-06-11] MEDS: PANTOPRAZOLE SODIUM IV 40 MG VIAL IV PUSH (03:51)
[2023-06-11 04:56] VITALS: BP 152/86; PULSE 80; RESP 15; O2SAT 95
[2023-06-11] MEDS: AMOXICILLIN/CLAVULANATE K 875-125 MG TAB 1 TABLET PO (05:12)
== END 2023-06-11 05:20 | disposition home or self-care (01) ==
PROVIDERS: Emergency Provider Student in an Organized Health Care Education/Training Program; PCP Nurse Practitioner Family
DX: K52.9 Noninfective gastroenteritis and colitis, unspecified (principal); M25.572 Pain in left ankle and joints of left foot; Z20.822 Contact with and (suspected) exposure to COVID-19; I25.10 Atherosclerotic heart disease of native coronary artery without angina pectoris; I10 Essential (primary) hypertension; I25.2 Old myocardial infarction; J45.909 Unspecified asthma, uncomplicated; E78.5 Hyperlipidemia, unspecified; N32.81 Overactive bladder; E55.9 Vitamin D deficiency, unspecified; K43.9 Ventral hernia without obstruction or gangrene; K21.9 Gastro-esophageal reflux disease without esophagitis; M19.90 Unspecified osteoarthritis, unspecified site; R73.03 Prediabetes; F41.9 Anxiety disorder, unspecified; Z95.5 Presence of coronary angioplasty implant and graft; Z85.46 Personal history of malignant neoplasm of prostate; Z87.891 Personal history of nicotine dependence; Z90.49 Acquired absence of other specified parts of digestive tract; Z90.79 Acquired absence of other genital organ(s); Z96.652 Presence of left artificial knee joint; I45.9 Conduction disorder, unspecified
CPT/HCPCS: 36415; 71046; 73610; 74177; 80053; 81003; 83690; 84484; 85025; 85380; 85610; 85730; 87637; 93005; 96361; 96374; 96375; 96376; 99284; A9270; C9113; J2270; J2405; J7030; Q9967

== ENCOUNTER 2023-06-19 07:23 | Outpatient (CLI) | payer MEDICARE, SELFPAY ==
--- NOTE | ~2023-06-19 | US_ITS ---
EXAMINATION: US soft tissue abdomen DATE: 06/19/2023 08:34 INDICATION: Ventral hernia. TECHNIQUE: Multiple grayscale and Doppler ultrasound images of the abdomen were obtained. COMPARISON: CT abdomen and pelvis 06/11/2023 FINDINGS: In the supraumbilical region, there is a ventral hernia containing fat. IMPRESSION: 1. Supraumbilical ventral hernia containing fat. Reviewed, dictated and finalized at location A. E REPAIRER
== END 2023-06-19 07:24 | disposition home or self-care (01) ==
LOC: ANHIMG 07:29
PROVIDERS: PCP Nurse Practitioner Family; Visit Provider Family Medicine
DX: K43.9 Ventral hernia without obstruction or gangrene (principal)
CPT/HCPCS: 76705

== ENCOUNTER → 2023-09-12 07:58 | Outpatient (CLI) | payer MEDICARE, SELFPAY ==
--- NOTE | ~2023-09-12 | XR_ITS ---
EXAMINATION: XR cervical spine 4-5V DATE: 09/12/2023 08:19 INDICATION: Other specific arthropathies, not elsewhere classified. TECHNIQUE: 5 views of cervical spine were obtained. COMPARISON: None. FINDINGS: There is 2 mm anterolisthesis of C3 on C4 and C4 on C5. There is kyphosis of lower cervical spine. Vertebral body heights are normal. There is mildly decreased disc height at C2-C3, C3-C4, and C4-C5 and severely decreased disc height at C5-C6 and C6-C7. There is severe facet joint osteoarthri tis at most levels. There is multilevel uncovertebral joint osteoarthritis, severe bilaterally at C5- C6. On the right, there is mild neural foraminal stenosis at C3-C4, C4-C5, and C5-C6, moderate neural foraminal stenosis at C6-C7, and mild neural foraminal stenosis at C7-T1. On the left, there is mild neural foraminal stenosis from C3-C4 through C6-C7. There is mild central canal stenosis at C3-C4, C 4-C5, C5-C6, and C6-C7. No prevertebral soft tissue swelling. IMPRESSION: 1. Severe cervical spondylosis. Reviewed, dictated and finalized at location A. FIC CONTROL FLAGGER
== END ==
PROVIDERS: PCP Nurse Practitioner Family; Visit Provider Nurse Practitioner Family
DX: M12.88 Other specific arthropathies, not elsewhere classified, other specified site (principal); M47.892 Other spondylosis, cervical region
CPT/HCPCS: 72050

== ENCOUNTER 2024-04-18 07:30 | Outpatient (RCR) | payer MEDICARE, SELFPAY ==
--- NOTE | 2024-03-07 08:28 | PTOPEVAL1 ---
Assessment and note entered by Tolu Pinto Evaluation Information Assessment Status Evaluation Diagnosis left trochanteric bursitis ICD-10 Condition Codes (PT) Pain in left hip M25.552 Onset 12/06/23 Subjective Information Pt. reports that he developed left hip pain about 4 years ago. He reports that he had a recent flare up in hip pain about 3 months. Pt. reports that he underwent a surgery to remove a nodule from the left hip 2 years ago. He states that he was told that his left leg is 1/2 longer than the right. He states that he cannot lay on the left side without increasing pain. He states that pain will increase with walking, but he continues to walk long distance despite his pain. he reports that he has to remain busy, as he has to care for his disabled . He reports that he is very independent and completes all household duties and IADL's without assistance. He reports that the hip will occasionally wake him at night, but sleep is difficult due to having to take care of his . He reports that his goal for therapy is to decrease his left hip pain. Reported Pain Level Pain Score 4: Self Report Assessment PT Clinical Summary Pt. is a 73 year old male who enters the clinic with left hip pain/trochanteric bursitis. He presents with pain, decreased proximal left l.e. strength, impaired gait, impaired postural awareness, and functional decline. Continued skilled PT is indicated in order to improve these area to allow the pt. to be able to complete all IADL's with improved comfort and efficiency. Plan of Care Interventions Electrical Stimulation,Gait Training,Hot Pack/Cold Pack,Manual Therapy,Neuro Re-education,Patient/ Caregiver Education,Therapeutic Activities, Therapeutic Exercise PT Services Indicated Yes Treatment Frequency and 2x/week x 10 visits Duration These treatments will address the objective and functional deficits as defined above. The patient will be advanced safely and appropriately in order for the patient to progress towards his/her prior level of function. Additional exercises will be introduced and as well as a comprehensive home exercise program upon discharge, if needed, ?to ensure carryover of functional gains achieved in the clinic. This treatment plan has been reviewed and agreement upon by the patient.
--- NOTE | 2024-03-07 08:31 | OPREHPOC ---
Outpatient Therapy Plan of Care This is a Multidisciplinary Plan of Care that may contain components documented by all disciplines (PT, OT, and ST.) PT Problem 1 PT Problem #1 Knowledge Deficit PT Goal 1 Goal Pt. will be independent with a HEP addressing l.e. strength and mobility Target Visit 2 PT Problem 2 PT Problem #2 Impaired Flexibility PT Goal 1 Goal Pt. will increase bilateral hip IR passive movement to 40 degrees Pt. will present at 20 degrees from full knee extension with the 90/90 test Target Visit 5 PT Problem 3 PT Problem #3 Impaired Strength PT Goal 1 Goal Pt. will be appropriate to advance to side lying hip abduction demonstrating at least 3/5 strength Pt. will present with 4-/5 left hip abductor strength in order to improve gait mechanics to avoid trendelenburg pattern. Target Visit 10 PT Problem 4 PT Problem #4 Impaired Functional Mobil PT Goal 1 Goal Pt. will demonstrate the ability to ambulate for a 10 minute duration without episode of trendelenburg during that time period. Target Visit 10
--- NOTE | 2024-04-18 08:41 | PTOPDC ---
Assessment and note entered by Tolu Pinto Evaluation Information Assessment Status Discharge Diagnosis left trochanteric bursitis ICD-10 Condition Codes (PT) Pain in left hip M25.552 Onset 12/06/23 Subjective Information Pt. reports that he is doing better. He continues to describe left hip pain. He states that he visited with his doctor last week and doctor discussed occasional cane use. He reports that he notices that the left hip is less tender than initially. He states that he still has a limp, but is becoming more conscious of avoiding his limp. He reports that he will continue with his HEP and is ready for discharge at this time. Reported Pain Level Pain Score 3: Self Report Assessment PT Clinical Summary Mr. Acuña has attended a total of 9 treatment sessions. He presents with improvement in gait mechanics, lower extremity strength and flexibility. He continues to have pain, however less intense. At this time pt. has a comprehensive HEP and will continue with independent exercise. Plan of Care PT Services Indicated No
== END 2024-04-18 11:36 | disposition home or self-care (01) ==
LOC: ANHPT 07:30
PROVIDERS: PCP Nurse Practitioner Family; Visit Provider Orthopaedic Surgery
DX: M70.62 Trochanteric bursitis, left hip (principal)
CPT/HCPCS: 97014; 97110; 97116; 97140; 97161; 97530; G0283

== ENCOUNTER 2024-05-09 10:01 | Emergency (ER) | payer MEDICARE, SELFPAY ==
[2024-05-09] VITALS (9 sets, daily range): BP systolic 124–157; BP diastolic 79–95; PULSE 71–82; RESP 10–19; TEMP 36.4–36.6; O2SAT 96–100
--- NOTE | ~2024-05-09 | XR_ITS ---
XR chest 1V Ordering provider: Loyd Lopes MD History: 73 years Male with . SOB . Comparison: June 11, 2023 FINDINGS: MEDIASTINUM: The cardiac silhouette is slightly enlarged. Congestive erica. LUNGS: No infiltrates, effusions or pneumothorax. Prominent markings bilaterally. OTHER: No free air under the diaphragm. IMPRESSION: Prominent markings bilaterally in the lower lobes. Early pneumonitis cannot be excluded. Reviewed, dictated and finalized at location A.
--- NOTE | ~2024-05-09 | CT_ITS ---
CTA chest PE protocol Ordering provider: Loyd Lopes MD History: 73 years Male with . Dyspnea, elevated dimer . Comparison: August 13, 2018 Technique: CT angiogram chest was performed following timed intravenous injection of contrast. Thin s lice axial images and reformatted coronal images were obtained. Three dimensional reformatted images of the chest were also obtained using a Diffon workstation. . Automated exposure control and iterati ve reconstruction technique were employed. The dose-length product was 560.32 mGy-cm. 100 mL Omnipaqu e 350 was given IV. Findings: PULMONARY ARTERIES: No pulmonary embolus. VISUALIZED THORACIC INLET: Normal. Both lobes of the thyroid with possibility of enlargement in the parathyroid gland on the right side. Further evaluation advised. MEDIASTINUM: Aorta/coronary arteries: Mild atheromatous disease. Heart/other: The heart is slightly enlarged. Lymph nodes: No mediastinal. Slight enlargement of the right hilar lymph nodes is noted. LUNGS: No pulmonary nodules or masses. No infiltrates or effusions. No pneumothorax. Dependent atelectatic c hanges. VISUALIZED UPPER ABDOMEN: Fat infiltration duodenal diverticulum. Otherwise, the visualized upper abd omen is normal. MUSCULOSKELETAL: Soft tissues: The superficial soft tissues are normal. Bones: Age appropriate degenerative changes of the spine. IMPRESSION: 1. No pulmonary embolism. 2. No acute cardiopulmonary pathology. 3. Enlarged thyroid gland with possibility of enlargement in the right parathyroid gland. Further ev aluation advised. 4. Fat infiltration of the liver. Reviewed, dictated and finalized at location A. IMPRESSION: 1. No pulmonary embolism. 2. No acute cardiopulmonary pathology. 3. Enlarged thyroid gland with possibility of enlargement in the right parathy roid gland. Further evaluation advised. 4. Fat infiltration of the liver.
--- NOTE | ~2024-05-09 | CT_ITS ---
Non-contrast Head CT History: Tingling, neurological centimeters COMPARISON: 05/25/2021 Technique: Axial non-contrast imaging of the brain was performed. Dose reduction technique was used on this scan by utilizing automated exposure control and iterative reconstruction technique. The dose -length product (DLP) was 681.00 mGy-cm. Findings: There is no evidence of intracranial hemorrhage, mass lesion, or acute infarct. Brain par enchyma appears normal. The ventricles and subarachnoid spaces are normal in size. The calvarium ap pears normal. The visualized paranasal sinuses and mastoid air cells are clear. Impression: No significant abnormality seen. Reviewed, dictated and finalized at location . Impression: No significant abnormality seen.
--- NOTE | 2024-05-09 10:49 | ECG_ITS ---
Test Date: 2024-05-09 11:04:34 Measurements Intervals [place] Rate: 70 P: 40 UT: 168 QRS: 1 QRSD: 105 T: 28 QT: 385 QTc: 417 Interpretive Statements SINUS RHYTHM No previous ECG available for comparison Electronically Signed On 05-09-2024 12:30:38 CDT by Kyle Ozuna M.D.
--- NOTE | 2024-05-09 11:03 | ED_ITS ---
HPI - General Adult General Chief complaint: Neuro Symptoms/Deficit Stated complaint: tingling to R side of head x 3 wks Time Seen by Provider: 05/09/24 10:25 History of Present Illness HPI narrative: 73-year-old male with a history of 3 weeks of paresthesias on a side of his head. Called his PCP who told him to come in for evaluation. He also complains of shortness of breath. No further complaints. Related Data Home Medications Medication Instructions Recorded Confirmed aspirin 81 mg tablet,delayed 81 mg PO HS 08/12/19 02/13/24 release (Aspir-) multivitamin,vh-nenc-scvpbwrk 1 tablet PO QAM 09/12/19 02/13/24 (Complete Multivitamin tablet) cholecalciferol (vitamin D3) 25 5,000 unit PO QAM 05/31/21 02/13/24 mcg (1,000 unit) capsule acetaminophen 650 mg 650 mg PO Q12H PRN Pain 12/22/21 02/13/24 tablet,extended release (Tylenol Arthritis Pain) metoprolol succinate 50 mg 50 mg PO QAM 12/29/21 02/13/24 tablet,extended release 24 hr sertraline 100 mg tablet 100 mg PO DAILY 07/13/22 02/13/24 glucosamine 750 mg-chondroit 100 tablet PO 06/23/23 02/13/24 mg-msm-D3 25 yim-xzls-ekc bor tablet tramadol 50 mg tablet 50 mg PO Q6H PRN 06/23/23 02/13/24 Allergies Allergy/AdvReac Type Severity Reaction Status Date / Time Sulfa (Sulfonamide Allergy Unknown Rash Verified 05/09/24 13:37 Antibiotics) Review of Systems Review of Systems: All systems reviewed & are unremarkable except as noted in HPI and below PMFSH Past Medical History Medical History Anxiety Asthma Coronary artery disease Dyslipidemia Essential hypertension Gastroesophageal reflux disease Hyperlipidemia Kidney stone Myocardial infarction Obesity Osteoarthritis Overactive bladder Prediabetes Prostate cancer Vitamin D deficiency Surgical History Surgical History Arthritis of carpometacarpal (CMC) joint of right thumb Suspension arthroplasty January 11, 2022 Greater trochanteric bursitis of left hip debridement with exostectomy 05/16/2022 History of coronary artery stent placement (04/2011) History of incisional hernia repair (09/18/19) da [place] assisted with symbotex mesh. History of laparoscopic cholecystectomy (2001) History of prostatectomy (03/2019) History of right inguinal hernia repair 2001, 2018 Status post left partial knee replacement (10/2017) Family History Family History Mother Family history of cardiovascular disease Carcinoma of colon Father Cerebrovascular accident Sibling Heart disease COPD (chronic obstructive pulmonary disease) Social History Social History Social History: Surrogate medical decision maker: Simarell Elizabeth, stepdaughter. Code status: Full code. Smoking packs per day: 0.5 Smoking cigarettes per day: 10.0 Years smoked: 5 Smoking pack-years: 2.50 Smoking status: Former smoker Second hand tobacco smoke exposure: No Alcohol intake: former Substance use: never Substance use type: does not use Do You Feel Safe in your Home?: Yes Lack of Transportation: No Lack of Food: Never True Current Housing: I Have Housing Concerned About Future Housing: No Difficulty Paying Gas/Electric Bills: No Difficulty Paying for Meds: No Currently Unemployed: No Education: Decline to Answer Difficulty w/ Childcare or Family Care: YES Living arrangements: with family Additional living arrangements comments: The patient lives with his Leatha in [place]. He is originally from [place] and moved here about 20+ years ago. 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. 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 Gender identity (if verbalized by the patient): Male Spiritual care concerns: No Exam Narrative: GENERAL: Well-appearing, well-nourished, and in no acute distress. HEAD: Normocephalic, atraumatic. EYES: PERRLA and EOMI. ENT: Mucous membranes moist. NECK: Supple. CHEST: Clear to auscultation. No respiratory distress. HEART: Regular rate and rhythm EXTREMITIES: Normal range of motion. SKIN: Warm, dry, no rash. NEURO: No focal deficits. Alert and oriented x3. PSYCH: Normal mood and affect. Course Vital Signs Vital signs: Vital Signs Temperature 97.6 F 05/09/24 10:20 Pulse Rate 76 05/09/24 10:20 Respiratory Rate 17 05/09/24 10:20 Blood Pressure 151/88 H 05/09/24 10:20 Pulse Oximetry 99 05/09/24 10:20 Oxygen Delivery Room Air 05/09/24 10:20 Temperature 97.7 F 05/09/24 13:33 Pulse Rate 78 05/09/24 16:50 Respiratory Rate 12 05/09/24 16:50 Blood Pressure 133/95 H 05/09/24 16:50 Pulse Oximetry 99 05/09/24 16:50 Oxygen Delivery Room Air 05/09/24 10:20 Medical Decision Making MDM Narrative Medical decision making narrative: 73-year-old male presenting with paresthesias for several weeks on the right side of his head. Vitals within normal limits. Exam remarkable for the above. Blood work is unremarkable. Troponins undetectable. Lactic acid is normal. CT brain without acute abnormalities. CTA of the chest shows no acute abnormalitie s. On re-evaluation, the patient states that he is actually feeling improved in the tingling has resolved. Feel he is safe for outpatient management. Advised close PCP follow-up. Appropriate return precautions given. He is agreeable this plan. Discharged in stable condition. Vital Signs Vital Signs: Vital Signs Temperature 97.6 F 05/09/24 10:20 Pulse Rate 76 05/09/24 10:20 Respiratory Rate 17 05/09/24 10:20 Blood Pressure 151/88 H 05/09/24 10:20 Pulse Oximetry 99 05/09/24 10:20 Oxygen Delivery Room Air 05/09/24 10:20 Temperature 97.7 F 05/09/24 13:33 Pulse Rate 78 05/09/24 16:50 Respiratory Rate 12 05/09/24 16:50 Blood Pressure 133/95 H 05/09/24 16:50 Pulse Oximetry 99 05/09/24 16:50 Oxygen Delivery Room Air 05/09/24 10:20 Lab Data 05/09/24 11:52 05/09/24 11:52 Labs: Lab Results 05/09/24 05/09/24 05/09/24 Range/Units 10:55 11:24 11:51 WBC (4.5-10.0) K/mm3 RBC (4.6-6.20) M/mm3 Hgb (14.0-18.0) g/dL Hct (42.0-52.0) % MCV (80-100) fl MCH (26-34) pg MCHC (32-36) g/dl RDW (11.5-14.5) % Plt Count (150-375) k/mm3 MPV (7.4-10.4) fl Immature Gran % (Auto) (0-0.5) % Neut % (Auto) (45.5-73.1) % Lymph % (Auto) (18.3-44.2) % [place] % (Auto) (2.6-8.5) % Eos % (Auto) (0-4.4) % Baso % (Auto) (0.2-1.2) % Lymph # (Auto) (0.9-3.2) K/mm3 [place] # (Auto) (0.1-0.6) K/mm3 Eos # (Auto) (0-0.3) K/mm3 Baso # (Auto) (0.0-0.1) K/mm3 Abs Immat Gran (auto) (0.00-0.031) K/mm3 Absolute Neuts (auto) (1.3-6.7) K/mm3 Absolute Nucleated RBC (0.0-0.012) K/mm3 Nucleated RBC % (0.0-0.2) % PT 13.4 (11.1-14.7) Seconds INR APTT (22.3-36.8) Seconds D-Dimer (<0.48) ug/mL Sodium (137-145) mmol/L Potassium (3.4-5.0) mmol/L Chloride (98-107) mmol/L Carbon Dioxide (22-30) mmol/L Anion Gap (4-12) mmol/L BUN (9-20) mg/dL Creatinine (0.7-1.3) mg/dL Estim Creat Clear Calc ml/min Estimated GFR (59 - ) Glucose (65-110) mg/dL POC Capillary Glucose 119 H (65-105) mg/dl Lactic Acid (0.7-2.0) mmol/L Calcium (8.4-10.2) mg/dL Phosphorus (2.5-4.5) mg/dL Magnesium (1.6-2.3) mg/dL Total Bilirubin (0.2-1.3) mg/dL AST (17-59) U/L ALT (6-50) U/L Alkaline Phosphatase (38-126) U/L Troponin I (0.000-0.034) ng/mL NT-Pro-B Natriuret Pep (19.9-100) pg/mL Total Protein (6.3-8.2) g/dL Albumin (3.5-5.1) g/dL Lipase (23-300) U/L TSH (Reflex) (0.465-4.68) uIU/mL Urine Color (Yellow) Urine Appearance (Clear) Urine pH (5.0-9.0) Ur Specific [place] (1.001-1.035) Urine Protein (Negative) mg/dL Urine Glucose (UA) (Negative) mg/dL Urine Ketones (Negative) mg/dL Ur Blood (Man) (Negative) Urine Nitrate (Negative) Urine Bilirubin (Negative) Urine Urobilinogen (<2.0) mg/dL Leukocyte Esterase Rfl (Negative) MAVERICK/UL Urine Opiates Screen (Negative) Urine Methadone Screen (Negative) Ur Barbiturates Screen (Negative) Ur Phencyclidine Scrn (Negative) Ur Amphetamine Screen (Negative) U Benzodiazepines Scrn (Negative) Urine Cocaine Screen (Negative) U Cannabinoids Screen (Negative) Ethyl Alcohol (<10) mg/dL Influenza A (RT-PCR) Negative (Negative) Influenza B (RT-PCR) Negative (Negative) RSV (RT-PCR) Negative (Negative) SARS-CoV-2 RNA (RT-PCR) Negative (Negative) 05/09/24 05/09/24 05/09/24 Range/Units 11:51 11:51 11:51 WBC (4.5-10.0) K/mm3 RBC (4.6-6.20) M/mm3 Hgb (14.0-18.0) g/dL Hct (42.0-52.0) % MCV (80-100) fl MCH (26-34) pg MCHC (32-36) g/dl RDW (11.5-14.5) % Plt Count (150-375) k/mm3 MPV (7.4-10.4) fl Immature Gran % (Auto) (0-0.5) % Neut % (Auto) (45.5-73.1) % Lymph % (Auto) (18.3-44.2) % [place] % (Auto) (2.6-8.5) % Eos % (Auto) (0-4.4) % Baso % (Auto) (0.2-1.2) % Lymph # (Auto) (0.9-3.2) K/mm3 [place] # (Auto) (0.1-0.6) K/mm3 Eos # (Auto) (0-0.3) K/mm3 Baso # (Auto) (0.0-0.1) K/mm3 Abs Immat Gran (auto) (0.00-0.031) K/mm3 Absolute Neuts (auto) (1.3-6.7) K/mm3 Absolute Nucleated RBC (0.0-0.012) K/mm3 Nucleated RBC % (0.0-0.2) % PT Cancelled (11.1-14.7) Seconds INR 1.0 Cancelled APTT 25.0 Cancelled (22.3-36.8) Seconds D-Dimer 0.79 H (<0.48) ug/mL Sodium (137-145) mmol/L Potassium (3.4-5.0) mmol/L Chloride (98-107) mmol/L Carbon Dioxide (22-30) mmol/L Anion Gap (4-12) mmol/L BUN (9-20) mg/dL Creatinine (0.7-1.3) mg/dL Estim Creat Clear Calc ml/min Estimated GFR (59 - ) Glucose (65-110) mg/dL POC Capillary Glucose (65-105) mg/dl Lactic Acid (0.7-2.0) mmol/L Calcium (8.4-10.2) mg/dL Phosphorus (2.5-4.5) mg/dL Magnesium (1.6-2.3) mg/dL Total Bilirubin (0.2-1.3) mg/dL AST (17-59) U/L ALT (6-50) U/L Alkaline Phosphatase (38-126) U/L Troponin I (0.000-0.034) ng/mL NT-Pro-B Natriuret Pep (19.9-100) pg/mL Total Protein (6.3-8.2) g/dL Albumin (3.5-5.1) g/dL Lipase (23-300) U/L TSH (Reflex) (0.465-4.68) uIU/mL Urine Color (Yellow) Urine Appearance (Clear) Urine pH (5.0-9.0) Ur Specific [place] (1.001-1.035) Urine Protein (Negative) mg/dL Urine Glucose (UA) (Negative) mg/dL Urine Ketones (Negative) mg/dL Ur Blood (Man) (Negative) Urine Nitrate (Negative) Urine Bilirubin (Negative) Urine Urobilinogen (<2.0) mg/dL Leukocyte Esterase Rfl (Negative) MAVERICK/UL Urine Opiates Screen (Negative) Urine Methadone Screen (Negative) Ur Barbiturates Screen (Negative) Ur Phencyclidine Scrn (Negative) Ur Amphetamine Screen (Negative) U Benzodiazepines Scrn (Negative) Urine Cocaine Screen (Negative) U Cannabinoids Screen (Negative) Ethyl Alcohol (<10) mg/dL Influenza A (RT-PCR) (Negative) Influenza B (RT-PCR) (Negative) RSV (RT-PCR) (Negative) SARS-CoV-2 RNA (RT-PCR) (Negative) 05/09/24 05/09/24 05/09/24 Range/Units 11:52 11:52 14:18 WBC 7.7 (4.5-10.0) K/mm3 RBC 4.34 L (4.6-6.20) M/mm3 Hgb 13.8 L (14.0-18.0) g/dL Hct 40.4 L (42.0-52.0) % MCV 93.1 (80-100) fl MCH 31.8 (26-34) pg MCHC 34.2 (32-36) g/dl RDW 13.2 (11.5-14.5) % Plt Count 220 (150-375) k/mm3 MPV 8.6 (7.4-10.4) fl Immature Gran % (Auto) 0.5 (0-0.5) % Neut % (Auto) 59.7 (45.5-73.1) % Lymph % (Auto) 21.4 (18.3-44.2) % [place] % (Auto) 7.3 (2.6-8.5) % Eos % (Auto) 10.2 H (0-4.4) % Baso % (Auto) 0.9 (0.2-1.2) % Lymph # (Auto) 1.64 (0.9-3.2) K/mm3 [place] # (Auto) 0.6 (0.1-0.6) K/mm3 Eos # (Auto) 0.8 H (0-0.3) K/mm3 Baso # (Auto) 0.1 (0.0-0.1) K/mm3 Abs Immat Gran (auto) 0.04 H (0.00-0.031) K/mm3 Absolute Neuts (auto) 4.6 (1.3-6.7) K/mm3 Absolute Nucleated RBC 0.000 (0.0-0.012) K/mm3 Nucleated RBC % 0.0 (0.0-0.2) % PT (11.1-14.7) Seconds INR APTT (22.3-36.8) Seconds D-Dimer (<0.48) ug/mL Sodium 140 (137-145) mmol/L Potassium 4.1 (3.4-5.0) mmol/L Chloride 106 (98-107) mmol/L Carbon Dioxide 25 (22-30) mmol/L Anion Gap 9 (4-12) mmol/L BUN 20 (9-20) mg/dL Creatinine 0.90 (0.7-1.3) mg/dL Estim Creat Clear Calc 75 ml/min Estimated GFR > 60 (59 - ) Glucose 111 H (65-110) mg/dL POC Capillary Glucose (65-105) mg/dl Lactic Acid 1.9 (0.7-2.0) mmol/L Calcium 9.4 (8.4-10.2) mg/dL Phosphorus 3.4 (2.5-4.5) mg/dL Magnesium 1.8 (1.6-2.3) mg/dL Total Bilirubin 0.6 (0.2-1.3) mg/dL AST 33 (17-59) U/L ALT 39 (6-50) U/L Alkaline Phosphatase 49 (38-126) U/L Troponin I < 0.012 < 0.012 < 0.012 (0.000-0.034) ng/mL NT-Pro-B Natriuret Pep 109 H (19.9-100) pg/mL Total Protein 8.0 (6.3-8.2) g/dL Albumin 4.7 (3.5-5.1) g/dL Lipase 144 (23-300) U/L TSH (Reflex) 1.450 (0.465-4.68) uIU/mL Urine Color Dark yellow (Yellow) Urine Appearance Clear (Clear) Urine pH 6.0 (5.0-9.0) Ur Specific [place] 1.020 (1.001-1.035) Urine Protein Negative (Negative) mg/dL Urine Glucose (UA) Negative (Negative) mg/dL Urine Ketones Negative (Negative) mg/dL Ur Blood (Man) Negative (Negative) Urine Nitrate Negative (Negative) Urine Bilirubin Negative (Negative) Urine Urobilinogen 0.2 (<2.0) mg/dL Leukocyte Esterase Rfl Negative (Negative) MAVERICK/UL Urine Opiates Screen Negative (Negative) Urine Methadone Screen Negative (Negative) Ur Barbiturates Screen Negative (Negative) Ur Phencyclidine Scrn Negative (Negative) Ur Amphetamine Screen Negative (Negative) U Benzodiazepines Scrn Negative (Negative) Urine Cocaine Screen Negative (Negative) U Cannabinoids Screen Negative (Negative) Ethyl Alcohol < 10 (<10) mg/dL Influenza A (RT-PCR) (Negative) Influenza B (RT-PCR) (Negative) RSV (RT-PCR) (Negative) SARS-CoV-2 RNA (RT-PCR) (Negative) Imaging Data Radiologist's impression: ITS Impressions Head CT 05/09/24 11:15 Impression: No significant abnormality seen. Chest X-Ray 05/09/24 11:36 IMPRESSION: Prominent markings bilaterally in the lower lobes. Early pneumonitis cannot be excluded. Chest CTA 05/09/24 15:33 IMPRESSION: 1. No pulmonary embolism. 2. No acute cardiopulmonary pathology. 3. Enlarged thyroid gland with possibility of enlargement in the right parathyroid gland. Further evaluation advised. 4. Fat infiltration of the liver. Critical Care Time Critical Care Time Critical Care Time: No Discharge Plan Discharge Clinical Impression: Paresthesia, Dyspnea Patient Disposition: Home, Self-Care Condition: Stable Instructions: Antibiotic Form, Paresthesia (ED) Additional Instructions: Your workup today is reassuring. Please follow-up closely with your PCP. If your symptoms worsen or other concerning symptoms arise, please return to the ER. Prescriptions: No Action acetaminophen [Tylenol Arthritis Pain] 650 mg tablet extended release 650 mg PO Q12H PRN (Reason: Pain) sertraline 100 mg tablet 100 mg PO DAILY niak-ldurn-nmf-D3-hyal-supa bor 750 mg-100 mg- 25 mcg tablet PO tramadol 50 mg tablet 50 mg PO Q6H PRN dicyclomine 10 mg capsule 10 mg PO TID PRN (Reason: abdominal pain) Qty: 30 0RF metoprolol succinate 50 mg tablet extended release 24 hr 50 mg PO QAM Complete Multivitamin Tablet 1 tablet PO QAM aspirin [Aspir-81] 81 mg tablet,delayed release (DR/EC) 81 mg PO HS Hold Instructions: Resume on 06/14/22. Hold for 4 weeks. Rx Instructions: take 1 tablet by oral route every day cholecalciferol (vitamin D3) 25 mcg (1,000 unit) capsule 5,000 unit PO QAM atorvastatin 40 mg tablet 60 mg PO QHS Qty: 135 1RF lisinopril-hydrochlorothiazide 20-12.5 mg tablet 0.5 tablet PO DAILY Qty: 90 1RF lorazepam 0.5 mg tablet 0.5 mg PO BID PRN (Reason: anxiety) Qty: 60 1RF Follow-up/Referrals: Elizabeth,Marge Jones, [facility] PERSON [Primary Care Provider] -
[2024-05-09 11:07] LABS: Glucose Point of Care 119 mg/dl (65-105)
[2024-05-09] MEDS: SODIUM CHLORIDE 0.9% IV 1,000 ML 999 ML IV CONT (11:53)
[2024-05-09 12:01] LABS: Basophils Absolute Auto 0.1 K/mm3 (0.0-0.1); Basophils Percent Auto 0.9 % (0.2-1.2); Eosinophils Absolute Auto 0.8 K/mm3 (0-0.3); Eosinophils Percent Auto 10.2 % (0-4.4); Hematocrit 40.4 % (42.0-52.0); Hemoglobin 13.8 g/dL (14.0-18.0); Immature Granulocyte Absolute 0.04 K/mm3 (0.00-0.031); Immature Granulocyte Percent A 0.5 % (0-0.5); Lymphocytes Absolute Auto 1.64 K/mm3 (0.9-3.2); Lymphocytes Percent Auto 21.4 % (18.3-44.2); Mean Corpuscular HGB Conc 34.2 g/dl (32-36); Mean Corpuscular Hemoglobin 31.8 pg (26-34); Mean Corpuscular Volume 93.1 fl (80-100); Mean Platelet Volume 8.6 fl (7.4-10.4); Monocytes Absolute Auto 0.6 K/mm3 (0.1-0.6); Monocytes Percent Auto 7.3 % (2.6-8.5); Neutrophils Absolute Auto 4.6 K/mm3 (1.3-6.7); Neutrophils Percent Auto 59.7 % (45.5-73.1); Platelet Count Result 220 k/mm3 (150-375); Red Blood Count 4.34 M/mm3 (4.6-6.20); Red Cell Distribution Width 13.2 % (11.5-14.5); White Blood Count 7.7 K/mm3 (4.5-10.0)
[2024-05-09 12:03] LABS: Add Urine Microscopic? YES; Appearance Urine Clear (Clear); Bilirubin Urine Negative (Negative); Blood Urine Negative (Negative); Color Urine Dark Yellow (Yellow); Glucose Urine UA Negative (Negative); Ketones Urine Negative (Negative); Leukocyte Esterase Ur Negative LEU/UL (Negative); Nitrate Urine Negative (Negative); Protein Urine Negative (Negative); Urobilinogen Urine 0.2 mg/dL (<2.0)
[2024-05-09 12:13] LABS: Influenza A QL RT-PCR Negative (Negative); Influenza B QL RT-PCR Negative (Negative); RSV RNA, RT-PCR Negative (Negative); SARS-CoV-2 RNA PCR Negative (Negative)
[2024-05-09 12:15] LABS: Prothrombin Time 13.4 Seconds (11.1-14.7)
[2024-05-09 12:17] LABS: Amphetamine Screen Urine Negative (Negative); Barbiturate Screen Urine Negative (Negative); Benzodiazepines Screen Urine Negative (Negative); Cannabinoid Screen Urine Negative (Negative); Cocaine Screen Urine Negative (Negative); Methadone Screen Urine Negative (Negative); Opiate Screen Urine Negative (Negative); Phencyclidine Screen Urine Negative (Negative)
[2024-05-09 12:26] LABS: Ethanol < 10 mg/dL (<10)
[2024-05-09 12:33] LABS: Lipase 144 U/L (23-300); Magnesium 1.8 mg/dL (1.6-2.3); NT Pro B Type Natriuretic Pept 109 pg/mL (19.9-100); Phosphorus 3.4 mg/dL (2.5-4.5); Troponin I < 0.012 ng/mL (0.000-0.034)
[2024-05-09 13:22] LABS: Alanine Aminotransferase 39 U/L (6-50); Albumin Level 4.7 g/dL (3.5-5.1); Alkaline Phosphatase 49 U/L (38-126); Anion Gap 9 mmol/L (4-12); Aspartate Amino Transferase 33 U/L (17-59); Bilirubin,Total 0.6 mg/dL (0.2-1.3); Blood Urea Nitrogen 20 mg/dL (9-20); Calcium 9.4 mg/dL (8.4-10.2); Carbon Dioxide 25 mmol/L (22-30); Chloride 106 mmol/L (98-107); Estimated CRCL calculation 75 ml/min; Estimated Glomerular Filt Rate > 60; Glucose 111 mg/dL (65-110); Potassium 4.1 mmol/L (3.4-5.0); Sodium 140 mmol/L (137-145)
[2024-05-09 13:34] LABS: Troponin I < 0.012 ng/mL (0.000-0.034)
[2024-05-09 14:40] LABS: D Dimer 0.79 ug/mL (<0.48)
[2024-05-09 14:50] LABS: Troponin I < 0.012 ng/mL (0.000-0.034)
[2024-05-09 14:56] LABS: Lactic Acid Reflex 1.9 mmol/L (0.7-2.0)
== END 2024-05-09 18:15 | disposition home or self-care (01) ==
PROVIDERS: Emergency Medicine; Emergency Provider Emergency Medicine; PCP Nurse Practitioner Family
DX: R20.2 Paresthesia of skin (principal); R06.00 Dyspnea, unspecified; I25.10 Atherosclerotic heart disease of native coronary artery without angina pectoris; I10 Essential (primary) hypertension; I25.2 Old myocardial infarction; J45.909 Unspecified asthma, uncomplicated; E78.5 Hyperlipidemia, unspecified; E55.9 Vitamin D deficiency, unspecified; N32.81 Overactive bladder; K21.9 Gastro-esophageal reflux disease without esophagitis; M18.9 Osteoarthritis of first carpometacarpal joint, unspecified; Z20.822 Contact with and (suspected) exposure to COVID-19; Z96.652 Presence of left artificial knee joint; Z95.5 Presence of coronary angioplasty implant and graft; Z85.46 Personal history of malignant neoplasm of prostate; Z90.49 Acquired absence of other specified parts of digestive tract; Z90.79 Acquired absence of other genital organ(s); E04.9 Nontoxic goiter, unspecified; K76.0 Fatty (change of) liver, not elsewhere classified; Z79.82 Long term (current) use of aspirin; Z79.899 Other long term (current) drug therapy
CPT/HCPCS: 36415; 70450; 71045; 71275; 80053; 80307; 81001; 82948; 83605; 83690; 83735; 83880; 84100; 84443; 84484; 85025; 85380; 85610; 85730; 87637; 93005; 96360; 99284; J7030; Q9967

== ENCOUNTER 2024-05-31 15:11 | Outpatient (CLI) | payer MEDICARE, SELFPAY ==
--- NOTE | ~2024-05-31 | US_ITS ---
EXAMINATION: US thyroid DATE: 05/31/2024 16:32 INDICATION: Enlarged thyroid. TECHNIQUE: Multiple ultrasound images of the thyroid were obtained. COMPARISON: Chest CT 05/09/2024, 08/13/18 FINDINGS: The right thyroid lobe measures 6.8 x 3.1 x 2.3 cm. The left thyroid lobe measures 6.5 x 1.9 x 1.9 c m. In the right thyroid lobe, there is a 3.0 cm solid, hypoechoic, wider than tall nodule with lobul ated margin without echogenic foci. The thyroid demonstrates heterogeneous echogenicity. Vascularity is normal. IMPRESSION: 1. Enlarged thyroid with nodule, stable from 08/13/2018, likely benign. Reviewed, dictated and finalized at location A.
--- NOTE | ~2024-05-31 | MR_ITS ---
EXAMINATION: MR brain/brain stem wo con DATE: 05/31/2024 16:13 INDICATION: Right face numbness and tingling. TECHNIQUE: Magnetic resonance imaging (MRI) of the brain and brainstem was performed without intraven ous contrast. COMPARISON: Head CT 05/09/2024 FINDINGS: There are scattered areas of nonspecific increased T2-weighted signal intensity in the cere bral white matter and maame, which is within normal limits for the patient's age. There is no intracra nial hemorrhage, acute infarction, or abnormal intracranial mass lesion. The ventricles are normal in size. The paranasal sinuses are clear. The orbits are normal. The mastoid air cells are normal. IMPRESSION: 1. Normal aging brain. Reviewed, dictated and finalized at location A. IMPRESSION: 1. Normal aging brain.
== END 2024-05-31 15:12 | disposition home or self-care (01) ==
LOC: ANHIMG 15:12
PROVIDERS: PCP Nurse Practitioner Family; Visit Provider Nurse Practitioner Family
DX: R20.0 Anesthesia of skin (principal); R20.2 Paresthesia of skin; E04.1 Nontoxic single thyroid nodule
CPT/HCPCS: 70551; 76536

== ENCOUNTER 2024-06-05 09:32 | Outpatient (CLI) | payer MEDICARE, SELFPAY ==
--- NOTE | ~2024-06-05 | CT_ITS ---
EXAMINATION:CT diagnostic chest w con DATE: 06/05/2024 10:29 INDICATION: Hilar lymphadenopathy. TECHNIQUE: Computed tomography (CT) of the chest was performed with 75 mL Omnipaque 350 intravenous c ontrast. Automated exposure control and iterative reconstruction technique were employed. The dose-le ngth product (DLP) was 458.56 mGy-cm. COMPARISON: Chest CT 05/09/2024 FINDINGS: The lungs demonstrate mild atelectasis. There is a pneumatocele in right lower lobe. No ple ural effusion. There are nodules in the thyroid measuring up to 13 mm, likely not clinically signific ant. Cardiomegaly is noted. No pericardial effusion. There are no pathologically enlarged lymph nodes . There is bilateral gynecomastia. There is a 10 mm mass in the posterior thorax at the skin, likely a sebaceous cyst. There is an old healed left clavicle fracture. There are bridging endplate osteophy autumn at multiple levels in the spine, consistent with diffuse idiopathic skeletal hyperostosis (DISH). There is mild thoracic spondylosis. IMPRESSION: 1. No lymphadenopathy. Reviewed, dictated and finalized at location B. IMPRESSION: 1. No lymphadenopathy.
[2024-06-05 10:07] LABS: Estimated Glomerular Filt Rate > 60
== END 2024-06-05 09:33 | disposition home or self-care (01) ==
PROVIDERS: PCP Nurse Practitioner Family; Visit Provider Nurse Practitioner Family
DX: R59.0 Localized enlarged lymph nodes (principal)
CPT/HCPCS: 71260; Q9967

== ENCOUNTER 2025-01-08 09:03 | Outpatient (CLI) | payer MEDICARE, SELFPAY ==
--- NOTE | ~2025-01-08 | XR_ITS ---
3 VIEWS THORACIC SPINE Ordering provider: Lillian Dempsey, AP PROCESSOR History: . Thoracic spondylosis . Comparison: None. FINDINGS: VERTEBRAL BODIES: Normal height and alignment. No visible fracture or subluxation. Degenerative mahoney es of the spine. DISK SPACES: Multilevel degenerative disc disease in the mid and lower thoracic area. SOFT TISSUES: Normal. IMPRESSION: No acute osseous abnormality of the thoracic spine. Multilevel degenerative disc disease. Reviewed, dictated and finalized at location A.
== END 2025-01-08 09:04 | disposition home or self-care (01) ==
PROVIDERS: PCP Nurse Practitioner Family; Visit Provider Nurse Practitioner Family
DX: M47.814 Spondylosis without myelopathy or radiculopathy, thoracic region (principal); M51.34 Other intervertebral disc degeneration, thoracic region
CPT/HCPCS: 72072

== ENCOUNTER 2025-06-13 08:53 | Outpatient (CLI) | payer MEDICARE, SELFPAY ==
--- NOTE | ~2025-06-13 | XR_ITS ---
EXAMINATION: XR lg joint inject/asp w image DATE: 06/13/2025 10:09 INDICATION: Unilateral primary osteoarthritis of the left hip with left hip pain TECHNIQUE: A time-out was performed to verify the patient's name, date of , and procedure to be performed. The procedure including the risks, benefits, and alternatives was discussed with the patient. Risks discussed included bleeding and infection. The patient understood the risks and agreed to proceed. The skin overlying the left hip joint was prepped and draped in usual sterile fashion. Anesthetic was administered with 1% lidocaine subcutaneously. A 22 G needle was advanced under fluoroscopic guidance into the joint. Injection of 1 mL of Omnipaque 240 confirmed intra-articular position of the needle. Subsequently, injectate consisting of 5 mm a 4:1 mixture of 1% lidocaine: 80 mg/mL Depo-Medrol for a total dosage of 80 mg Depo-Medrol was instilled. Washout of contrast was seen confirming intra-articular administration. The needle was removed and the entry site was cleaned and dresse d. There were no immediate complications. Fluoroscopy exposure time was 0.1 minutes. The total number of images was 2. Total DAP was 0.746 Gycm^2. FINDINGS: Real-time fluoroscopy demonstrates the needle in the left hip joint. Patient's pain prior to procedure:7/10. Patient's pain following the procedure: 0/10. IMPRESSION: 1. Successful left hip joint injection of local anesthetic and steroid with decrease in the patient's presenting pain. Reviewed, dictated and finalized at location A. R VEHICLE ASSEMBLY SUPERVISOR IMPRESSION: 1. Successful left hip joint injection of local anesthetic and steroid with dec rease in the patient's presenting pain.
--- OUTSIDE RECORDS SUMMARY | 2025-06-13 09:30 | XMS_ITS | Clinical Summary ---
Author Organization [facility] [facility] [place] [address] Address [address] [place] [address] Care Team Providers Care Cell Changer Name Role Phone Jace Alcaraz MD Unavailable [phone] Tolu Quiles MD Unavailable [phone] Cj Harris MD Unavailable [phone] Kevin Beverly MD Unavailable [phone] Marge Johnson NP Primary Care Provider [phone] Allergies Active Allergy Reactions Criticality Noted Date Comments Sulfa (Sulfonamide Antibiotics) Rash Medium 03/09 Medications aspirin 81 mg tablet Take 1 tablet (81 mg total) by mouth daily Active cholecalciferol (VITAMIN D-3) 5,000 unit capsule Take 1 capsule (5,000 Units total) by mouth daily Active multivitamin tablet,chewable Take 1 tablet by mouth daily. Active glucosamine/msm /chondrt/C/hyal (GLUCOSAMINE-CH ONDROITIN-MSM ORAL) Take by mouth 2 (two) times a day Active naloxone (NARCAN) 4 mg/actuation spray,non-aeros olIndications:r isk mitigation for opioid overdose Administer 1 spray into affected nostril(s) as needed for opioid reversal or respiratory depression Call 911. Administer a single spray in one nostril. Repeat every 3 minutes as needed if no or minimal response. 2 each 05/02/[address] (PROTONIX) 40 mg EC tablet Take 1 tablet (40 mg total) by mouth daily 90 tablet 1 06/13/20 23 Active omega-3 fatty acids-fish oil 300-1,000 mg capsule Take 2 capsules (2 g total) by mouth daily Active baclofen (LIORESAL) 10 mg tablet Take 1 tablet (10 mg total) by mouth 3 (three) times a day as needed for muscle spasms 90 tablet 5 07/23/20 24 Active betamethasone dipropionate (DIPROSONE) 0.05 % lotion Apply topically 2 (two) times a day as needed for irritation or rash 180 mL 4 10/29/19 25 Active metoprolol XL (TOPROL-XL) 50 mg extended release tablet Take 1 tablet by mouth once daily 90 tablet 3 11/05/19 25 Active hydrOXYzine (ATARAX) 25 mg tablet Take 1 tablet (25 mg total) by mouth 3 (three) times a day as needed for itching 60 tablet 1 11/12/19 25 Active LORazepam (ATIVAN) 0.5 mg tablet Take 1 tablet by mouth twice daily as needed for anxiety 60 tablet 12/07/19 25 Active atorvastatin (LIPITOR) 40 mg tablet TAKE 1 & 1/2 (ONE & ONE-HALF) TABLETS BY MOUTH ONCE DAILY 150 tablet 04/04/20 25 Active metFORMIN XR (GLUCOPHAGE XR) 500 mg 24 hr tablet Take 1 tablet by mouth once daily with breakfast 90 tablet 05/06/20 25 Active lisinopril-hydr oCHLOROthiazide (ZESTORETIC) 20-12.5 mg per tabletIndicatio ns:Acute midline low back pain with left-sided sciatica Take 1/2 (one-half) tablet by mouth once daily 45 tablet 1 05/22/20 25 Active traMADoL (ULTRAM) 50 mg tabletIndicatio ns:Acute midline low back pain with left-sided sciatica Take 1 tablet (50 mg total) by mouth every 8 (eight) hours as needed for pain 90 tablet 1 05/22/20 25 Active sertraline (ZOLOFT) 100 mg tablet Take 1 tablet by mouth once daily 90 tablet 06/11/20 25 Active sertraline (ZOLOFT) 100 mg tablet Take 1 tablet by mouth once daily 90 tablet 1 12/18/19 25 2024 Discontinued lisinopril-hydr oCHLOROthiazide (ZESTORETIC) 20-12.5 mg per tabletIndicatio ns:Acute midline low back pain with left-sided sciatica Take 1/2 (one-half) tablet by mouth once daily 50 tablet 1 01/21/20 25 2024 Discontinued traMADoL (ULTRAM) 50 mg tabletIndicatio ns:Acute midline low back pain with left-sided sciatica Take 1 tablet (50 mg total) by mouth every 8 (eight) hours as needed for pain 90 tablet 04/21/20 25 2024 Discontinued(R eorder) Active Problems Problem Noted Date Diagnosed Date Anesthesia complication 05/20/2025 Overview (05/20/2025): No. 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 05/20/2025 Folliculitis 05/20/2025 Gastroesophageal reflux disease 05/20/2025 Gross hematuria 05/20/2025 Hernia, abdominal 05/20/2025 Hx of myocardial infarction 05/20/2025 Inguinal hernia 05/20/2025 Overview (05/20/2025): Phreesia 08/25/2022 Malignant neoplasm of prostate 05/20/2025 Overview (05/20/2025): Phreesia 08/25/2022 Nocturia 05/20/2025 Prediabetes 05/20/2025 Scrotal pain 05/20/2025 Stool color black 05/20/2025 Hx of joint replacement 05/20/2025 Overview (05/20/2025): Phreesia 08/25/2022 Overactive bladder 05/20/2025 Overview (05/20/2025): Phreesia 08/17/2020 Panic attack 05/20/2025 Numbness and tingling of right side of face 10/2023 Assessment & Plan (11/11/2024 10:21 AM CDT): Improving, pt following with pain management now (he will send me name of provider/location) and receiving injections. Discussed having them take over his Tramadol since I am not able to see any adjustments that may be made, etc. He has appt in February and will discuss at that time. I will refill until then and touch base to see if they have taken over. Also discussed Gabapentin may contribute to fatigue and may not be doing much on this low dose for the pain/tingling anyway. Will stop Gabapentin. Assessment & Plan (05/13/2024 1:15 PM CDT): ER workup reassuring. However, with sx progressing will get MRI and US carotid to be safe. Gabapentin trial--not overly suspicious this is a result from shingles but will try. Intrinsic eczema 04/24/2024 Assessment & Plan (04/24/2024 9:43 AM CDT): I gave him betamethasone lotion twice daily. I recommended that he use either Aveeno Eucerin CeraVe or Vaseline lotion twice a day to his body. Hydroxyzine for itching. He is due for lab work. Ordered today. Follow up with PCP Medicare annual wellness visit, subsequent 11/20 Assessment & Plan (11/21/2023 9:48 AM CDT): A yearly Medicare Annual Wellness Visit has been performed today. Jorje Acuña is not up to date on screening tests. He is in need of Colon cancer screening- these have been ordered. He is not up to date on needed preventative vaccinations; He is in need of Covid-19 (booster). These have been ordered/arranged unless otherwise indicated. Chronic midline low back pain with left-sided sc iatica 05/05/2023 Assessment & Plan (11/21/2023 9:52 AM CDT): Pain stable overall, continues Tramadol prn. Will need to consider pain management eventually but with patient caring for his 27/02 we will continue current regimen. Patient aware to not take the Tramadol with Lorazepam, has Narcan. Assessment & Plan (05/16/2023 9:51 AM CDT): MRI reviewed with patient, he will be establishing with pain management. Tramadol refilled for now. Assessment & Plan (05/05/2023 9:37 PM CDT): Disc herniation considered Medrol for now, will consider tramadol as a low-potency option for short-term Xray today first, likely will need MRI Relative rest x 2 weeks, avoid lifting if at all possible. Will have to see about home health for the missus. Anxiety 07/04/2022 Assessment & Plan (05/20/2025 4:02 PM CDT): Stable overall on Sertraline and prn Lorazepam. Pt does note difficulty sleeping at night d/t the anxiety of pt's whom he cares for and her health. Discussed options but he is not interested in medication at this time for it. Assessment & Plan (11/11/2024 10:17 AM CDT): Stable on Sertraline and prn Lorazepam. Assessment & Plan (11/21/2023 9:53 AM CDT): Patient's anxiety not at goal, we had increased patient's Sertraline to 125 mg daily at previous visit. Misunderstanding and patient decreased his Sertraline to 25 mg daily. Increase Sertraline to 50 mg daily x 2 weeks and then increase to 100 mg daily of the Sertraline. Update me in 4 weeks and we will see about increasing to the 125 mg daily. Assessment & Plan (06/20/2023 10:57 AM PRESS BOX CUSTODIAN): Worsening with 's physical condition declining. Will increase Sertraline to 125 mg daily, continuing Lorazepam BID prn. Assessment & Plan (05/16/2023 9:51 AM CDT): Continuing Sertraline 100 mg daily and Lorazepam BID prn. Assessment & Plan (08/09/2022 9:56 AM PRESS BOX CUSTODIAN): Has improved since increasing the Sertraline, has been able to decrease the Ativan to once daily vs BID as before. Will continue at current dosages of both medications and follow up as scheduled in December, sooner if needed. 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 This has taken a toll on him with his anxiety/depression due to her ongoing health problems and dementia. Patient has been on Sertraline 50 mg daily and Lorazepam 0.5 mg BID prn. He takes the Lorazepam pretty consistently. Discussed increasing Sertraline to 100 mg daily to get better overall control and use the Lorazepam on more of an prn basis. Pt agreeable. Follow up in 6 weeks to re-assess. Family history of stroke 06/28/2022 Elevated PSA 06/28/2022 Assessment & Plan (11/21/2023 9:49 AM CDT): Follows with Dr. Harris (Urology) Has hx of prostate cancer. Assessment & Plan (07/05/2022 12:43 PM PRESS BOX CUSTODIAN): Follows with Dr. Harris (Urology) Has hx of prostate cancer. Hyperlipidemia 11/16/2017 Assessment & Plan (05/20/2025 4:01 PM CDT): Continues Lipitor, no side effects reported. Assessment & Plan (11/11/2024 10:18 AM CDT): Continues Lipitor, no side effects reported. Assessment & Plan (11/21/2023 9:49 AM CDT): Continues Lipitor, no side effects reported. Due for labs in 1 month. Assessment & Plan (07/05/2022 12:42 PM PRESS BOX CUSTODIAN): Overdue for labs, ordered Continues Lipitor, no side effects reported. Coronary artery disease invo lving nez perce coronary artery of nez perce heart without angina pectoris 08/08/2017 Assessment & Plan (11/21/2023 9:49 AM CDT): Follows with Dr. Quiles (Cardio) Continues Statin, Toprol-XL and ASA Assessment & Plan (07/05/2022 12:45 PM PRESS BOX CUSTODIAN): Follows with Dr. Quiles (Cardio) Continues Statin, Toprol-XL and ASA History of coronary artery stent placement 08/08 Benign prostatic hyperplasia without urinary obs truction 04/05/2017 Assessment & Plan (11/21/2023 9:52 AM CDT): Patient continues Oxybutynin XL and follows with Dr. Harris (Urology) Assessment & Plan (07/05/2022 12:41 PM PRESS BOX CUSTODIAN): Patient continues Oxybutynin XL and follows with Dr. Harris (Urology) Dyslipidemia 04/05/2017 Essential hypertension 04/05/2017 Assessment & Plan (05/20/2025 4:01 PM CDT): BP stable in office, no changes today Assessment & Plan (11/11/2024 10:18 AM CDT): BP stable in office, no changes today Assessment & Plan (11/21/2023 9:49 AM CDT): BP stable in office, updated labs ordered to be completed in 1 month. Assessment & Plan (05/16/2023 9:50 AM CDT): BP stable in office, updated labs ordered. Assessment & Plan (07/05/2022 12:47 PM PRESS BOX CUSTODIAN): BP controlled in office, continues Zestoretic and Toprol XL Labs ordered Male hypogonadism 04/05/2017 Vitamin D deficiency 04/05/2017 Resolved Problems Problem Noted Date Diagnosed Date Resolved Date Heart attack 05/20/2025 05/20/2025 Overview (05/20/2025): Phreesia 08/17/2020 Heart palpitations 05/20/2025 Increased frequency of urination 05/20/2025 05/20/2025 Kidney stone 05/20/2025 05/20/2025 Left flank pain 05/20/2025 05/20/2025 Obesity 05/20/2025 05/20/2025 Overactive bladder 05/20/2025 Trochanteric bursitis, left hip 05/20/2025 05/20/2025 Urinary urgency 05/20/2025 05/20/2025 Overview (05/20/2025): Tried and failed oxybutynin UTI (urinary tract infection) 05/20/2025 05/20/2025 Hyperglycemia 06/28/2022 05/20/2025 Osteoarthritis 06/28/2022 05/20/2025 Tachycardia 06/28/2022 05/20/2025 Encounters Date Type Department Care Team Description 05/22/2025 Orders Only [facility] Primary Care at [address] [address] Marge Johnson NP Acute midline low back pain with left-sided sciatica 05/21/2025 Results Follow-Up [facility] Primary Care at [address] [address] Marge Johnson NP Comprehensive metabolic panel, CBC with auto differential, Hemoglobin A1c, Additional followed-up results: 6 05/20/2025 2:00 PM CDT Lab [address] [address] Essential hypertension; Prediabetes; Vitamin D deficiency; Elevated PSA 05/20/2025 12:30 PM CDT Office Visit [facility] Primary Care at [address] [address] Marge Johnson NP Essential hypertension (Primary Dx); Vitamin D deficiency; Hyperlipidemia, unspecified hyperlipidemia type; Fatigue, unspecified type; Prediabetes; Need for vaccination; Anxiety 05/20/2025 Orders Only [facility] Primary Care at [address] [address] Marge Johnson NP Essential hypertension (Primary Dx); Elevated PSA; Vitamin D deficiency; Prediabetes 05/01/2025 8:15 AM CDT Office Visit [facility] Cardiology [address] [place] [address] Tolu Quiles MD Coronary artery disease involving nez perce coronary artery of nez perce heart without angina pectoris (Primary Dx); History of coronary artery stent placement 04/08/2025 8:07 AM CDT - 04/08/2025 11:59 PM CDT Hospital Encounter [facility] [address] [place] [address] Pain in left hip Discharge Disposition: Discharge to home or self care from Last 3 Months Immunizations Immunization Administration Dates Next Due Influenza, Quad, Adjuvantate d, Intramuscular 05/31/2022,06/22/2021 Influenza, Quadrivalent, Spl it, Preservative Free, Intramuscular 06/19/2020 Influenza, Trivalent, Adjuva nted, Intramuscular 05/15/2024,03/31/2018 Influenza, Trivalent, High D ose, Split, Preservative Free, Intramuscular 05/20/2025,04/08/2017,04/26/2016 Influenza, Trivalent, IM (MDV) 05/29/2015 Influenza, Unspecified 04/24/2024(Deferr ed: Patient Refused),08/07/2023(Deferred: Patient Refused) Moderna SARS-CoV-2 Monovalen t Vaccination (12+ YRS) 06/22/2021 Pfizer SARS-CoV-2 Monovalent Vaccination (12+ Yrs) PURPLE 10/27/2020,10/06/2020 Pneumococcal Conjugate PCV 13 04/17/2017 Pneumococcal Conjugate Pcv20 05/31/2022 Pneumococcal Polysaccharide PPV23 10/31/2018 Tdap 03/03/2022 Surgical History Surgery Date Site/Laterality Comments KNEE SURGERY CHOLECYSTECTOMY HERNIA REPAIR 2019 JOINT REPLACEMENT October2017 PROSTATE SURGERY 02/04/2019 - 03/06/2019 VASECTOMY 08/07/1969 - 08/06/1970 Medical History Medical History Date Comments Palpitations Chronic heart disease Anxiety 1970 Arthritis 1989 Asthma 1969 Benign prostatic hyperplasia Cancer (HCC) 2018 Depression 1970 Heart disease 2007 Hypertension 2007 GERD (gastroesophageal reflux disease) 06/2021 Cataract 2020 Kidney stone 2019 Family History Medical History Relation Name Comments Early Brother 1 Jacinto Acuña Depression Brother 2 Bill acuña Arthritis Father Meño Acuña Diabetes Father Meño Acuña Heart attack Father Meño Acuña Stroke Father Meño Acuña Arthritis Mother [place] Cancer Mother [place] Acu[place] Heart attack Mother [place] Acu[place] Heart disease Mother Queta Dunhams Relation Name Status Comments Brother 1 Jacinto Dunhams Brother 2 Dirk acuña Father Meño Acuña Mother Queta Acuña Social History Tobacco Use Types Packs/Day Years Used Date Smoking Tobacco: Former Cigarettes 0.8 15 Pipe Cigars Passive Smoke Exposure: Past Smokeless Tobacco: Never Tobacco Cessation:Counseling Given: Not Answered Alcohol Use Standard Drinks/Week Comments Yes 0 (1 standard drink = 0.6 oz pur e alcohol) once a year AUDIT-C Answer Date Recorded Q1: How often do you have a drink containing alcohol? Never 05/02/2023 Q2: How many drinks containi ng alcohol do you have on a typical day when you are drinking? Patient does not drink Q3: How often do you have si x or more drinks on one occasion? Never 05/02/2023 PHQ-2 Answer Date Recorded PHQ-2 Total Score (If total score is 3 or more points, staff should administer the PHQ-9) 0 05/20/2025 Sex and Gender Information Value Date Recorded Sex Assigned at Not on file Legal Sex Male 1:58 AM PRESS BOX CUSTODIAN Gender Identity Male 09/03/2019 5:24 AM PRESS BOX CUSTODIAN Sexual Orientation Straight 09/03/2019 5: 24 AM PRESS BOX CUSTODIAN Last Filed Vital Signs Vital Sign Reading Time Taken Comments Blood Pressure 104/58 05/20/2025 12:39 PM CDT Pulse 80 05/20/2025 12:39 PM CDT Temperature 36.4 C (97.5 F) 05/20/2025 12:39 PM CDT Respiratory Rate 18 04/14/2024 9:28 AM CDT Oxygen Saturation 95% 05/20/2025 12:39 PM CDT Inhaled Oxygen Concentration - - Weight 97.1 kg (214 lb) 05/20/2025 12:39 PM CDT Height 179.1 cm (5' 10.5) 05/20/2025 12:39 PM C DT Body Mass Index 30.27 05/20/2025 12:39 PM CDT Plan of Treatment Health Maintenance Due Date Last Done Comments Hepatitis B Screening 1968 Zoster Vaccine (1 of 2) 2000 Well Visit 65+ 11/20/2024 11/21/2023 Covid-19 Vaccine (6 - 2024-2 6 season) 2025 05/15/2024, 03/03/2022, 06/22/2021, Additional history exists Depression Screening 05/20/2026 05/20/2025, 11/11/2024, 05/13/2024, Additional history exists Fall Risk Assessment 05/20/2026 05/20/2025, 11/11/2024, 05/09/2024, Additional history exists Colon Cancer Screening-DNA Stool 11/27/2026 11/28/19 24 DTaP/Tdap/Td Vaccine (2 - Td or Tdap) 03/03/2032 03/03/2022 Pneumococcal vaccine 65+ Completed 022, 10/31/2018, 04/17/2017 Hepatitis C Screening Completed 07/04/2022 Colon Cancer Screening-FIT Discontinued 11/28/2023 Abdominal Aortic Aneurysm (A AA) Screen Completed 05/09/2024, 01/11/2023 Influenza Vaccine Completed 05/20/2025, , 05/31/2022, Additional history exists Prostate Cancer Screening-PSA Discontinued 05/20/2025, 07/04/2022 Procedures Procedure Name Priority Date/Time Associated Diagnosis Comments EGFR Routine 05/20/2025 2:04 PM CDT Essential hypertension DIFFERENTIAL AUTO Routine 05/20/2025 2:0 4 PM CDT Essential hypertension PSA SCREEN Routine 05/20/2025 2:04 PM CDT Elevated PSA VITAMIN D 25 HYDROXY Routine 05/20/2025 2:04 PM CDT Vitamin D deficiency THYROID FUNCTION CASCADE Routine 05/20/2025 2:04 PM CDT Essential hypertension LIPID PANEL Routine 05/20/2025 2:04 PM CDT Essential hypertension HEMOGLOBIN A1C Routine 05/20/2025 2:04 PM CDT Prediabetes CBC WITH AUTO DIFFERENTIAL Routine 05/20/2025 2:04 PM CDT Essential hypertension COMPREHENSIVE METABOLIC PANEL Routine 05/20/2025 2:04 PM CDT Essential hypertension MRI PELVIS WO CONTRAST Schedule Routine, Read Routine (OP Routine) 04/08/2025 9:20 AM CDT Pain in left hip CTA CHEST ABDOMEN W WO CONTRAST Schedule Routine, Read Routine (OP Routine) 05/09/2024 9:10 AM CDT STOOL DNA COLOGUARD Routine 11/28/2023 11:30 PM CDT Colon cancer screening HEPATITIS C ANTIBODY Routine 07/04/2022 12:59 PM PRESS BOX CUSTODIAN Encounter for hepatitis C screening test for low risk patient from Last 3 Months or Most Recently Relevant to Health Maintenance Results * eGFR (05/20/2025 2:04 PM CDT) eGFR 75 >=60 mL/min/1. 73 m2 Comment: Interpretive Data Reference Interval Normal >/= 90 mL/min/1.73m2 Mildly decreased* 60 - 89 mL/min/1.73m2 Mildly to moderately decreased 45 - 59 mL/min/1.73m2 Moderately to severely decreased 30 - 44 mL/min/1.73m2 Severely decreased 15 - 29 mL/min/1.73m2 Kidney Failure < 15 mL/min/1.73m2 *Relative to young adult level Estimated glomerular filtration rate is determined by the 2020 CKD-EPI equation recommended by the National Kidney Foundation (A Unifying Approach to GFR Estimation: Recommendations of the NKF-ASK Task Force on Reassessing the Inclusion of Race in Diagnosing Kidney Disease, JASN 2020). The CKD-EPI equation should not be used for patients with unstable renal function and has not been validated in children and those over 70. Current interpretive data was last reviewed 2021. Blood 05/20/2025 2:04 PM CDT 05/20/2025 7:03 PM CDT us Marge Johnson [employer] LAB BLOOD ORDERABLES Final Resul t LEONARD [address] [facility] [place] [address] * Differential, auto (05/20/2025 2:04 PM CDT) Pathologist [facility] Neutrophil abs 5.88 1.50 - 6.50 K/cumm Imm gran abs 0.04 0.00 - 0.10 K/cumm [facility] Lymphocyte abs 2.10 0.80 - 3.30 K/cumm [facility] Monocyte abs 0.72 0.20 - 0.80 K/cumm [facility] Eosinophil abs 0.32 0.00 - 0.50 K/cumm [facility] Basophil abs 0.06 0.00 - 0.10 K/cumm [facility] Neutrophil pct 64.5 % [facility] Comment: Interpretive Data Percent cell count reference ranges are not reported, since discordance with absolute values may lead to misinterpretation of CBC data. Current Interpretive Data was last revised on 2017. Imm gran pct 0.4 % [facility] Comment: Interpretive Data Percent cell count reference ranges are not reported, since discordance with absolute values may lead to misinterpretation of CBC data. Current Interpretive Data was last revised on 2017. Lymphocyte pct 23.0 % [facility] Comment: Interpretive Data Percent cell count reference ranges are not reported, since discordance with absolute values may lead to misinterpretation of CBC data. Current Interpretive Data was last revised on 2017. Monocyte pct 7.9 % [facility] Comment: Interpretive Data Percent cell count reference ranges are not reported, since discordance with absolute values may lead to misinterpretation of CBC data. Current Interpretive Data was last revised on 2017. Eosinophil pct 3.5 % [facility] Comment: Interpretive Data Percent cell count reference ranges are not reported, since discordance with absolute values may lead to misinterpretation of CBC data. Current Interpretive Data was last revised on 2017. Basophil pct 0.7 % [facility] Comment: Interpretive Data Percent cell count reference ranges are not reported, since discordance with absolute values may lead to misinterpretation of CBC data. Current Interpretive Data was last revised on 2017. Blood 05/20/2025 2:04 PM CDT 05/20/2025 7:03 PM CDT Result Manolo Johnson NP LAB BLOOD ORDERABLES Final Resul t Performing Organization Address [facility] Phone Number [address] [place] [address] * Thyroid Function [place] (05/20/2025 2:04 PM CDT) TSH 0.80 0.30 - 4.20 mcIUnit/mL Blood 05/20/2025 2:04 PM CDT 05/20/2025 7:03 PM CDT us Marge Johnson NP LAB BLOOD ORDERABLES Final Resul t Performing Organization Address [facility] Phone Number [address] [address] * PSA screen (05/20/2025 2:04 PM CDT) PSA-Total <0.10 <=6.20 ng/mL Comment: Interpretive Data AGE SEX REFERENCE INTERVAL 0 minutes-150 years Female None 0 minutes-49 years Male None 50-59 years Male 0-3.90 60-69 years Male 0-5.40 70-79 years Male 0-6.20 80-150 years Male 0-6.20 The [place] PSA Total assay procedure was used. Results from different manufacturers or methods may not be comparable. Serial testing should be performed using the same method. Current interpretive data last revised 21. Blood 05/20/2025 2:04 PM CDT 05/20/2025 7:03 PM CDT us Marge Johnson NP LAB BLOOD ORDERABLES Final Resul t Performing Organization Address [facility]/State/ZIP Co de Phone Number [address] [address] * CBC with auto differential (05/20/2025 2:04 PM CDT) [facility] WBC 9.12 3.80 - 9.90 K/cumm Hgb 13.3 13.0 - 17.5 g/dL [facility] Hct 41.0 38.9 - 50.3 % [facility] Plt 266 150 - 400 K/cumm [facility] MPV 9.7 9.1 - 12.3 fL [facility] RBC 4.37 4.30 - 5.80 M/cumm [facility] MCV 93.8 81.3 - 96.4 fL [facility] MCH 30.4 27.1 - 33.3 pg [facility] MCHC 32.4 32.3 - 35.7 g/dL [facility] RDW CV 13.2 11.1 - 14.9 % [facility] RDW SD 44.9 35.7 - 48.1 fL [facility] NRBC abs 0.00 0.00 - 0.01 K/cumm [facility] Blood 05/20/2025 2:04 PM CDT 05/20/2025 7:03 PM CDT us Marge Johnson [employer] LAB BLOOD ORDERABLES Final Resul t Performing Organization Address [facility] Co de Phone Number [address] [address] * Vitamin D 25 hydroxy (05/20/2025 2:04 PM CDT) [facility] Vitamin D 25-OH 57.0 30.0 - 80.0 ng/mL Blood 05/20/2025 2:04 PM CDT 05/20/2025 7:03 PM CDT us Marge Johnson CLAY THROWER LAB BLOOD ORDERABLES Final Resul t Performing Organization Address [facility] Co de Phone Number [address] [address] * (ABNORMAL) Hemoglobin A1c (05/20/2025 2:04 PM CDT) Hgb A1C 6.2(H) 4.0 - 5.6 % Estimated Average Glucose 131 mg/dL LEONARD NOVAK Comment: The ADA recommends reporting an estimated Average Glucose (eAG) with all Hemoglobin A1c results using the equation derived from a study of 507 normal and diabetic adults. Minority populations were underrepresented and children were not included. (Diabetes Care 31:2420-5773, 2008). The eAG is not equivalent to a fasting glucose. Blood 05/20/2025 2:04 PM CDT 05/20/2025 7:03 PM CDT Marge Johnson CLAY THROWER LAB BLOOD ORDERABLES Final Resul t LEONARD [address] [facility] Department [place] [address] * (ABNORMAL) Lipid panel (05/20/2025 2:04 PM CDT) Cholesterol 199 30 - 199 mg/dL Comment: Interpretive Data Ages < or = 19 years Acceptable: <170 mg/dL Borderline high: 170-199 mg/dL High: >or= 200 mg/dL Ages > or = 20 years Desirable: <200 mg/dL Borderline high: 200-239 mg/dL High: >or= 240 mg/dL Literature References: 1. Expert Panel on Integrated Guidelines for Cardiovascular Health and Risk Reduction in Children and Adolescents. Pediatrics 2011;128:S213 2. NCEP Expert Panel. Circulation 2004;110:227 Current Interpretive Data was last revised on 2018. Triglycerides 301(H) <=149 mg/dL LEONARD Comment: Interpretive Data Ages < or = 9 years Acceptable: <75 mg/dL Borderline high: 75-99 mg/dL High: >or= 100 mg/dL Ages 10 to 20 years Acceptable: <90 mg/dL Borderline high: 90-129 mg/dL High: >or= 130 mg/dL Ages > or = 20 years Desirable: <150 mg/dL Borderline high: 150-199 mg/dL High: 200-499 mg/dL Very high: >or= 499 mg/dL Literature References: 1. Expert Panel on Integrated Guidelines for Cardiovascular Health and Risk Reduction in Children and Adolescents. Pediatrics 2011;128:S213 2. NCEP Expert Panel. Circulation 2004;110:227 Current Interpretive Data was last revised on 2018. HDL 46 >=40 mg/dL LEONARD Comment: Interpretive Data Ages < or = 19 years Acceptable: >45 mg/dL Borderline low: 40-45 mg/dL Low: <40 mg/dL Ages > or = 20 years Desirable: >or= 60 mg/dL Low: <40 mg/dL Literature References: 1. Expert Panel on Integrated Guidelines for Cardiovascular Health and Risk Reduction in Children and Adolescents. Pediatrics 2011;128:S213 2. NCEP Expert Panel. Circulation 2004;110:227 Current Interpretive Data was last revised on 2018. LDL, calculated 102 <=129 mg/dL LEONARD Comment: Interpretive Data Ages < or = 19 years Acceptable: <110 mg/dL Borderline high: 110-129 mg/dL High: >or= 130 mg/dL Ages > or = 20 years Optimal: <100 mg/dL Near optimal: 100-129 mg/dL Borderline high: 130-159 mg/dL High: >160 mg/dL Calculated using the Edmundo LDL-C estimating equation. This equation was implemented on 2024. Prior to this date LDL-C was estimated using the Friedewald equation. Literature References: 1. Expert Panel on Integrated Guidelines for Cardiovascular Health and Risk Reduction in Children and Adolescents. Pediatrics 2011;128:S213 2. NCEP Expert Panel. Circulation 2004;110:227 3. Edmundo Bradford al. JERE Cardiol. 2020 December 05;5(5):540-548. doi: 10.1001/jamacardio.2020.0013 Current Interpretive Data was last revised on 2024. Non-HDL Cholesterol 153 mg/dL LEONARD Comment: Interpretive Data Ages < or = 19 years Acceptable: <120 mg/dL Borderline high: 120-144 mg/dL High: >145 mg/dL Ages > or = 20 years When triglycerides are >200 mg/dL, Non-HDL cholesterol is a secondary target of therapy with treatment goals that are 30 mg/dL greater than the LDL cholesterol target. Literature References: 1. Expert Panel on Integrated Guidelines for Cardiovascular Health and Risk Reduction in Children and Adolescents. Pediatrics 2011;128:S213 2. NCEP Expert Panel. Circulation 2004;110:227 Current Interpretive Data was last revised on 2018. Chol/HDL ratio 4 [facility] Blood 05/20/2025 2:04 PM CDT 05/20/2025 7:03 PM CDT Marge Johnson NP LAB BLOOD ORDERABLES Final Resul t [facility] [address] [facility] Department [place] [address] * Comprehensive metabolic panel (05/20/2025 2:04 PM CDT) Sodium 143 135 - 145 mmol/L Potassium, pl 4.4 3.3 - 4.9 mmol/L [facility] Chloride 104 97 - 110 mmol/L [facility] CO2 26 22 - 32 mmol/L [facility] Anion gap 13 2 - 15 mmol/L [facility] BUN 19 6 - 25 mg/dL [facility] Creatinine 1.04 0.80 - 1.30 mg/dL [facility] Glucose 95 70 - 199 mg/dL [facility] Comment: Interpretive Data Fasting glucose >/= 126 mg/dl is diagnostic for diabetes. Fasting is defined as no caloric intake for at least 8 hours. Fasting glucose between 100 mg/dl to 125 mg/dl is diagnostic of prediabetes. In a patient with classic symptoms of hyperglycemia or hyperglycemic crisis, a random glucose >/= 200 mg/dl is diagnostic for diabetes. In the absence of unequivocal hyperglycemia, results should be confirmed by repeat testing. The classification and Diagnosis of Diabetes Diabetes Care 202; 46: S19-S40. Current interpretive data was last revised 2022. Calcium 9.9 8.5 - 10.3 mg/dL [facility] Bilirubin, total 0.3 0.1 - 1.2 mg/dL [facility] Protein, pl 7.7 6.5 - 8.5 g/dL [facility] Albumin 4.6 3.5 - 5.0 g/dL [facility] Alk phos 69 40 - 130 Units/L [facility] ALT 26 7 - 55 Units/L [facility] AST 24 10 - 50 Units/L [facility] Blood 05/20/2025 2:04 PM CDT 05/20/2025 7:03 PM CDT us Marge Johnson NP LAB BLOOD ORDERABLES Final Resul t LEONARD [address] [facility] Department [place] [address] * MRI Pelvis WO Contrast (04/08/2025 9:20 AM CDT) Anatomical Region Laterality Modality Pelvis N/A Magnetic Resonan ce 04/11/2025 12:1 1 PM CDT Narrative 04/11/2025 12:17 PM CDT EXAM DESCRIPTION: MRI PELVIS WO CONTRAST REASON FOR STUDY: M25.552 Left hip pain and lower back, sacrum pain. No injury. Started 6 weeks. TECHNIQUE: Multiplanar, multisequence MRI of the pelvis was performed without contrast. COMPARISON: None available FINDINGS: Within the left hip, on this non arthrographic evaluation, there is degenerative tearing of the anterosuperior and posterosuperior acetabular labrum with small paralabral cyst formation and pericapsular edema. Deep partial and full-thickness cartilage loss of the superior femoral head and acetabulum are present with subchondral edema. Small left hip effusion with synovitis. The ligamentum teres is intact. The right femoral head is well seated. Mild right hip chondrosis. Trace right hip effusion. There is no evidence of femoral head osteonecrosis or femoral neck stress fracture. Mild asymmetric atrophy of the left piriformis muscle. The sciatic nerves are normal in course and morphology. The adductor tendons and musculature appear normal. Bilateral insertional gluteus minimus and medius tendinosis is present. There is mild bilateral greater trochanteric bursitis. Xqbd-yl-ojqhzvpp bilateral hamstring origin tendinosis with partial-thickness insertional tearing, left greater than right. 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 IMPRESSION: 1. Moderate to severe left hip chondrosis with degenerative tearing of the anterosuperior and posterosuperior acetabular labrum, small effusion and synovitis. 2. Mild right hip chondrosis with a trace effusion. 3. Bilateral insertional gluteus minimus and medius tendinosis with mild bilateral greater trochanteric bursitis. 4. Bpgs-ai-jrpghyso bilateral hamstring origin tendinosis with partial-thickness insertional tearing, left greater than right. 5. 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 THIS IS AN ELECTRONICALLY VERIFIED FINAL REPORT 04/11/2025 12:17 PM - Electronically signed by Tolu Wood M.D. MF: [id number] Report ID: [id number] Reading Location: [id number] Procedure Note Tolu Wood MD - 04/11/2025 EXAM DESCRIPTION: MRI PELVIS WO CONTRAST REASON FOR STUDY: M25.552 Left hip pain and lower back, sacrum pain. No injury. Started 6 weeks. TECHNIQUE: Multiplanar, multisequence MRI of the pelvis was performed without contrast. COMPARISON: None available FINDINGS: Within the left hip, on this non arthrographic evaluation, there is degenerative tearing of the anterosuperior and posterosuperior acetabular labrum with small paralabral cyst formation and pericapsular edema. Deep partial and full-thickness cartilage loss of the superior femoral head and acetabulum are present with subchondral edema. Small left hip effusionwith synovitis. The ligamentum teres is intact. The right femoral head is well seated. Mild right hip chondrosis. Traceright hip effusion. There is no evidence of femoral head osteonecrosis orfemoral neck stress fracture. Mild asymmetric atrophy of the left piriformis muscle. The sciatic nervesare normal in course and morphology. The adductor tendons and musculatureappear normal. Bilateral insertional gluteus minimus and medius tendinosis is present. There is mild bilateral greater trochanteric bursitis. Kjcs-ju-fvwqnkbr bilateral hamstring origin tendinosis withpartial-thickness insertional tearing, left greater than right. 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 IMPRESSION: 1. Moderate to severe left hip chondrosis with degenerative tearing ofthe anterosuperior and posterosuperior acetabular labrum, small effusion and synovitis. 2. Mild right hip chondrosis with a trace effusion. 3. Bilateral insertional gluteus minimus and medius tendinosis with mild bilateral greater trochanteric bursitis. 4. Pecg-uy-rlnbujmi bilateral hamstring origin tendinosis with partial-thickness insertional tearing, left greater than right. 5. Inferior lumbar degenerative disc disease with facetosteoarthritis. THIS IS AN ELECTRONICALLY VERIFIED FINAL REPORT 04/11/2025 12:17 PM - Electronically signed by Tolu Wood M.D. MF: [id number] Report ID: [id number] Reading Location: [id number] Memo Arredondo MD IMG MRI PROCEDURES Final Resu lt * CTA Chest and Abdomen (05/09/2024 9:10 AM CDT) Anatomical Region Laterality Modality Body N/A Computed Tomogra phy Historical Provider IMG CT PROCEDURES Final R esult * Stool DNA - Cologuard (11/28/2023 11:30 PM CDT) Stool DNA - Cologuard Negative Negative [facility] (CLIA #:[id number]) Comment: NEGATIVE TEST RESULT. A negative Cologuard result indicates a low likelihood that a colorectal cancer (CRC) or advanced adenoma (adenomatous polyps with more advanced pre-malignant features) is present. The chance that a person with a negative Cologuard test has a colorectal cancer is less than 1 in 1500 (negative predictive value >99.9%) or has an advanced adenoma is less than 5.3% (negative predictive value 94.7%). These data are based on a prospective cross-sectional study of 10,000 individuals at average risk for colorectal cancer who were screened with both Cologuard and colonoscopy. (Ravindra Keller al, N Engl J Med 2014;370(14):6034-6306) The normal value (reference range) for this assay is negative. COLOGUARD RE-SCREENING RECOMMENDATION: Periodic colorectal cancer screening is an important part of preventive healthcare for asymptomatic individuals at average risk for colorectal cancer. Following a negative Cologuard result, the [place] Cancer Society and U.S. Multi-Society Task Force screening guidelines recommend a Cologuard re-screening interval of 3 years. References: [place] Cancer Society Guideline for Colorectal Cancer Screening: https://www.cancer.org/cancer/oqkbq-iknlkn-xiyriu/ndpljaqbq-ezzwocjrg-oukciwf/ac s-rec ommendations.html.; Lefty DK, Karen CR, Nayely SlaughterK, Colorectal Cancer Screening: Recommendations for Physicians and Patients from the U.S. Multi-Society Task Force on Colorectal Cancer Screening , Am J Gastroenterology 2017; 112:4617-1657. TEST DESCRIPTION: Composite algorithmic analysis of stool DNA-biomarkers with hemoglobin immunoassay. Quantitative values of individual biomarkers are not reportable and are not associated with individual biomarker result reference ranges. Cologuard is intended for colorectal cancer screening of adults of either sex, 45 years or older, who are at average-risk for colorectal cancer (CRC). Cologuard has been approved for use by the U.S. FDA. The performance of Cologuard was established in a cross sectional study of average-risk adults aged 50-84. Cologuard performance in patients ages 45 to 49 years was estimated by sub-group analysis of near-age groups. Colonoscopies performed for a positive result may find as the most clinically significant lesion: colorectal cancer [4.0%], advanced adenoma (including sessile serrated polyps greater than or equal to 1cm diameter) [20%] or non- advanced adenoma [31%]; or no colorectal neoplasia [45%]. These estimates are derived from a prospective cross-sectional screening study of 10,000 individuals at average risk for colorectal cancer who were screened with both Cologuard and colonoscopy. (Ravindra Keller al, N Engl J Med 2014;370(14):6556-2146.) Cologuard may produce a false negative or false positive result (no colorectal cancer or precancerous polyp present at colonoscopy follow up). A negative Cologuard test result does not guarantee the absence of CRC or advanced adenoma (pre-cancer). The current Cologuard screening interval is every 3 years. ([place] Cancer Society and U.S. Multi-Society Task Force). Cologuard performance data in a 10,000 patient pivotal study using colonoscopy as the reference method can be accessed at the following location: www.[employer].Lamppost/results. Additional description of the Cologuard test process, warnings and precautions can be found at www.colCatalyst Biosciencesrd.Lamppost. Stool 11/28/2023 11:3 0 PM CDT 11/30/2023 9:47 AM CDT Marge Johnson NP LAB BODY FLUIDS AND STOOLS ORDER LELAND Final Result Performing Organization Address City/[facility]/ZIP Co de Phone Number [facility] (CLIA #:[id number]) [place] [place] [address] * Hepatitis C antibody (07/04/2022 12:59 PM PRESS BOX CUSTODIAN) Hep C Ab Nonreactive Nonreactive LEONARD MARKS Comment: Interpretive Data Nonreactive: Antibodies to HCV not detected. Does NOT exclude the possibility of recent exposure to HCV. Equivocal: Equivocal for HCV antibodies. Supplemental molecular testing will be automatically performed to determine infection status in accordance with current CDC screening recommendations. Reactive: Positive for HCV antibodies. This may represent current or past HCV infection. Supplemental molecular testing will be automatically performed to determine current infection status in accordance with current CDC screening recommendations. Interpretive data was last revised on 2019. Blood 07/04/2022 12:5 9 PM PRESS BOX CUSTODIAN 07/04/2022 7:28 PM PRESS BOX CUSTODIAN Marge Johnson NP LAB MICROBIOLOGY - GENERAL ORDER LELAND Final Result Performing Organization Address City/[facility] Co de Phone Number LEONARD [address] [address] Department of Laboratories [place], [place] [id number] from Last 3 Months or Most Recently Relevant to Health Maintenance Insurance AARP MEDICARE [facility] MEDICARE ADVANTAGE Care Teams Cell Changer Relationship Specialty Start Date End Date Marge Johnson NP [address] [facility] [address] [place] [address] PCP - General Family Medicine 06/28/22 Jace Alcaraz MD [address] [place] [address] Referring Physician Orthopedic Surgery 06/28/22 Tolu Quiles MD [address] [facility] [address] [place] [address] Consulting Physician Cardiology 06/28/22 [place] [address] [facility] [address] [place] [address] Consulting Physician Urology 06/28/22 Kevin Beverly MD [address] [place] [address] Surgeon Anesthesiology 11/13/24
--- OUTSIDE RECORDS SUMMARY | 2025-06-13 09:30 | XMS_ITS | Encounter Summary ---
Author Organization [facility] Healthcare Address [address] [place] [address] Care Team Providers Care Design Project Manager Name Role Phone Jace Alcaraz MD Unavailable [phone] Tolu Quiles MD Unavailable [phone] Cj Harris MD Unavailable [phone] Kevin Beverly MD Unavailable [phone] Marge Johnson NP Primary Care Provider [phone] Encounter Details Date Type Department Care Team (Latest Contact Info) Description 05/21/2025 Results Follow-Up [facility] Primary Care at [address] [address] Marge Johnson, MICK [address] [place] [address] [address] [place] [address] Comprehensive metabolic panel, CBC with auto differential, Hemoglobin A1c, Additional followed-up results: 6 Social History Tobacco Use Types Packs/Day Years Used Date Smoking Tobacco: Former Cigarettes 0.8 15 Pipe Cigars Passive Smoke Exposure: Past Smokeless Tobacco: Never Alcohol Use Standard Drinks/Week Comments Yes 0 [...] on file Legal Sex Male 1:58 AM 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 Gender Identity Male 09/03/2019 5:24 AM 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 Sexual Orientation Straight 09/03/2019 5: 24 AM 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 documented as of this encounter Plan of Treatment Not on file documented as of this encounter Visit Diagnoses Not on filedocumented in this encounter Care Teams Design Project Manager Relationship Specialty Start Date End Date Marge Johnson PAPER REEL OPERATOR [address] [place] [address] PCP - General Family Medicine 06/28/22 Jace Alcraaz MD [address] [place] [address] Referring Physician Orthopedic Surgery 06/28/22 Tolu Quiles MD [address] [place], [place] [id number] Consulting Physician Cardiology 06/28/22 [place] [address] [address] [place] [address] Consulting Physician Urology 06/28/22 Kevin Beverly MD [address] [place] [address] Surgeon Anesthesiology 11/13/24 documented as of this encounter
== END 2025-06-13 08:54 | disposition home or self-care (01) ==
PROVIDERS: PCP Nurse Practitioner Family; Visit Provider Orthopaedic Surgery
DX: M16.12 Unilateral primary osteoarthritis, left hip (principal)
CPT/HCPCS: 20610; 77002; J1010; J2003; Q9966